=== PATIENT | male | born 1950 | race Hispanic/Latino ===

== ENCOUNTER 2017-02-27 15:33 | Inpatient (IN) | payer MEDICAID ==
[2017-02-27 15:52] VITALS: BMI 18.2
[2017-02-27] MEDS ORDERED: Sodium Chloride 0.9% 1,000 ML IV STA ×2 (16:28→18:19)
--- NOTE | 2017-02-27 16:30 | ED PDOC ---
Arrival/HPI - General Chief Complaint: Shortness Of Breath Time Seen by Provider: 02/27/17 16:09 Historian: Patient - History of Present Illness Narrative History of Present Illness (Text): 02/27/17 16:16 A 66 year old male, whose past medical history includes diabetes, is sent into the emergency department by PMD for positive cxray consistent with pneumonia. Patient reports for the past 3 days he has not been feel well. Patient symptoms includes a cough, runny nose, shortness of breath, decrease appetite and generalized weakness. Patient denies any chest pain, abdominal pain, or any other complaints. Patient mentions she was prescribed antibiotics by his PMD today. Patient did not get a flu shot this year. PMD: Dr. Carr Time/Duration: Other (3 days) Symptom Onset: Sudden Symptom Course: Unchanged Quality: Other Activities at Onset: Rest Context: Home Past Medical History - Provider Review Nursing Documentation Reviewed: Yes - Infectious Disease Hx of Infectious Diseases: None - Tetanus Immunization Tetanus Immunization: Unknown - Cardiac Hx Peripheral Edema: Yes - Pulmonary Hx Respiratory Disorders: No - Neurological Hx Neurological Disorder: No Other/Comment: Neuropathy,lumbar radiculopathy,pinched nerve lower back - HEENT Hx HEENT Disorder: No - Renal Hx Renal Disorder: No - Endocrine/Metabolic Hx Diabetes Mellitus Type 2: Yes - Hematological/Oncological Hx Blood Disorders: No - Integumentary Hx Dermatological Disorder: No - Musculoskeletal/Rheumatological Hx Falls: No - Gastrointestinal Hx Gastrointestinal Disorders: No - Genitourinary/Gynecological Hx Genitourinary Disorders: No - Psychiatric Hx Psychophysiologic Disorder: No Hx Anxiety: No Hx Bipolar Disorder: No Hx Depression: No Hx Emotional Abuse: No Hx Hallucinations: No Hx Panic Disorder: No Hx Post Traumatic Stress Disorder: No Hx Psychosis: No Hx Physical Abuse: No Hx Schizophrenia: No Hx Sexual Abuse: No Hx Substance Use: No - Surgical History Hx Amputation: Yes (partial Left great toe) Other/Comment: PICC line 03/15 - Anesthesia Hx Anesthesia: Yes Hx Anesthesia Reactions: No Hx Malignant Hyperthermia: No - Suicidal Assessment Feels Threatened In Home Enviroment: No Family/Social History - Physician Review Nursing Documentation Reviewed: Yes Family/Social History: No Known Family HX Smoking Status: Former Smoker Hx Alcohol Use: No Hx Substance Use: No Hx Substance Use Treatment: No Allergies/Home Meds Allergies/Adverse Reactions: Allergies No Known Allergies Allergy (Verified 01/04/15 15:13) Review of Systems - Physician Review All systems were reviewed & negative as marked: Yes - Review of Systems Constitutional: Fatigue Eyes: absent: Vision Changes ENT: Rhinorrhea Respiratory: SOB, Cough Cardiovascular: absent: Chest Pain Gastrointestinal: Appetite Changes. absent: Abdominal Pain, Constipation, Diarrhea, Nausea Genitourinary Male: absent: Dysuria Musculoskeletal: absent: Arthralgias Skin: absent: Rash Neurological: absent: Headache, Dizziness Endocrine: absent: Diaphoresis Hemo/Lymphatic: absent: Adenopathy Psychiatric: absent: Anxiety Physical Exam Vital Signs Reviewed: Yes Vital Signs Temp Pulse Resp BP Pulse Ox 02/27/17 18:00 102 H 17 149/77 98 02/27/17 16:30 22 93 L 02/27/17 16:13 103 H 16 97 02/27/17 15:49 97.5 F L 109 H 20 169/92 H 92 L Temperature: Afebrile Blood Pressure: Hypertensive Pulse: Tachycardic Respiratory Rate: Tachypneic Appearance: Positive for: Well-Appearing, Non-Toxic, Comfortable Pain Distress: None Mental Status: Positive for: Alert and Oriented X 3 - Systems Exam Head: Present: Atraumatic, Normocephalic Pupils: Present: PERRL Extroacular Muscles: Present: EOMI Conjunctiva: Present: Normal Mouth: Present: Moist Mucous Membranes Neck: Present: Normal Range of Motion Respiratory/Chest: Present: Clear to Auscultation, Good Air Exchange. No: Respiratory Distress, Accessory Muscle Use, Wheezes, Rales, Retracting, Rhonchi Cardiovascular: Present: Normal S1, S2, Tachycardic. No: Murmurs Abdomen: Present: Normal Bowel Sounds. No: Tenderness, Distention, Peritoneal Signs Back: Present: Normal Inspection Upper Extremity: Present: Normal Inspection. No: Cyanosis, Edema Lower Extremity: Present: Normal Inspection. No: Edema Neurological: Present: GCS=15, CN II-XII Intact, Speech Normal Skin: Present: Warm, Dry, Normal Color. No: Rashes Psychiatric: Present: Alert, Oriented x 3, Normal Insight, Normal Concentration Medical Decision Making ED Course and Treatment: 02/27/17 16:16 Impression: A 66 year old male with cough, runny nose, decrease appetite, shortness of breath and generalized weakness. Patient is tachycardic, hypoxic, and tachypneic (and meets SIRS criteria) Differential Diagnosis include but are not limited to: Pneumonia vs. bronchitis vs. Influenza Plan: -- EKG -- Chest X-ray -- Labs -- Influenza A/B -- Reassess and disposition Prior Visits: Notes and results from previous visits were reviewed. The patient was last brought into the emergency department on 01/24/17 unresponsive. Progress Notes: EKG: Ordered, reviewed, and independently interpreted the EKG. Rate : 102 BPM Rhythm : Sinus tachycardia Interpretation : Left axis deviation, No ST/T changes Comparison : Grossly unchanged from previous EKG on 01/24/17 for comparison. 02/27/17 17:25 Chest X-ray: Creator : CHANTELLE IGNACIO MD COMPARISON: 01/24/2017 FINDINGS: LUNGS: The lungs are hyperinflated and there is peribronchial thickening with chronic changes in both lungs. There is no focal consolidation PLEURA: No significant pleural effusion identified. No pneumothorax apparent. CARDIOVASCULAR: Normal. OSSEOUS STRUCTURES: No significant abnormalities. VISUALIZED UPPER ABDOMEN: Normal. OTHER FINDINGS: None. IMPRESSION: No active pulmonary disease. COPD. Patient had positive outpatient cxray and cxray in ED concerning for early pna. Patient given azithromycin and ceftriaxone. IVF infusing. He was given nebulizer treatments and continued to be short of breath and tachycardic, tachypneic and saturating 92% on RA. He meets sirs criteria. Will transfer to observation for copd/pna. Also hyperglycemic with gap but ph:7.33. IVF infusing. 02/27/17 19:[address] Caballero who is aware. - Lab Interpretations Lab Results: 02/27/17 16:50 02/27/17 16:50 Lab Results 02/27/17 17:15: Influenza Typ A,B (EIA) Negative for flu a/b 02/27/17 16:50: WBC 11.5 H D, RBC 4.37, Hgb 13.5 L, Hct 39.6 L, MCV 90.6, MCH 30.9, MCHC 34.1, RDW 12.0, Plt Count 193, MPV 11.8 H, Gran % 81.2 H, Lymph % ( Auto) 5.7 L, Stafford % (Auto) 13.0 H, Eos % (Auto) 0.0 L, Baso % (Auto) 0.1, Gran # 9.34 H, Lymph # 0.7 L, Stafford # 1.5 H, Eos # 0.0, Baso # 0.01, pO2 47, VBG pH 7.33, VBG pCO2 33.0 L, VBG HCO3 17.4 L, VBG Total CO2 18.4 L, VBG O2 Sat (Calc) 84.1 H, VBG Base Excess -7.5 L, VBG Potassium 4.8, Glucose 406 H*, Lactate 1.8, FiO2 21.0, Sodium 130.0 L, Potassium 4.7, Chloride 91.0 L, Carbon Dioxide 17 L, Anion Gap 28 H, BUN 24 H, Creatinine 0.8, Est GFR ( Amer) > 60, Est GFR ( Non-Af Amer) > 60, Random Glucose 395 H* D, Calcium 8.7, Total Bilirubin 1.2, AST 25, ALT 20, Alkaline Phosphatase 75, Total Protein 7.3, Albumin 3.8, Globulin 3.5, Albumin/Globulin Ratio 1.1, Venous Blood Potassium 4.8 I have reviewed the lab results: Yes - RAD Interpretation Radiology Orders: 02/27/17 16:24 CHEST TWO VIEWS (PA/LAT) [RAD] Stat - Medication Orders Current Medication Orders: Discontinued Medications Albuterol/Ipratropium (Duoneb 3 Mg/0.5 Mg (3 Ml) Ud) 3 ml IH STAT STA Stop: 02/27/17 18:26 Last Admin: 02/27/17 18:36 Dose: 3 ML Sodium Chloride (Sodium Chloride 0.9%) 1,000 mls @ 999 mls/hr IV .Q1H1M STA Stop: 02/27/17 17:28 Last Admin: 02/27/17 17:18 Dose: 999 MLS/HR eMAR Start Stop Document 02/27/17 17:18 ALA (Rec: 02/27/17 17:18 ALA [id number]) Intravenous Solution Start Date 02/27/17 Start Time 17:18 End Date 02/27/17 End time 18:18 Total Infusion Time 60 Azithromycin (Zithromax 500mg In Ns) 250 mls @ 167 mls/hr IVPB STAT STA PRN Reason: Protocol Stop: 02/27/17 18:06 Last Admin: 02/27/17 18:14 Dose: 167 MLS/HR eMAR Start Stop Document 02/27/17 18:14 ALA (Rec: 02/27/17 18:14 ALA [id number]) Intravenous Solution Start Date 02/27/17 Start Time 18:14 End Date 02/27/17 End time 19:44 Total Infusion Time 90 Ceftriaxone Sodium (Rocephin 1 Gram Ivpb) 100 mls @ 200 mls/hr IVPB STAT STA PRN Reason: Protocol Stop: 02/27/17 17:06 Last Admin: 02/27/17 17:20 Dose: 200 MLS/HR eMAR Start Stop Document 02/27/17 17:20 ALA (Rec: 02/27/17 17:20 ALA [id number]) Intravenous Solution Start Date 02/27/17 Start Time 17:20 End Date 02/27/17 End time 17:50 Total Infusion Time 30 Sodium Chloride (Sodium Chloride 0.9%) 1,000 mls @ 999 mls/hr IV .Q1H1M STA Stop: 02/27/17 19:19 Last Admin: 02/27/17 18:36 Dose: 999 MLS/HR eMAR Start Stop Document 02/27/17 18:36 ALA (Rec: 02/27/17 18:36 ALA [id number]) Intravenous Solution Start Date 02/27/17 Start Time 18:36 End Date 02/27/17 End time 19:36 Total Infusion Time 60 - Scribe Statement The provider has reviewed the documentation as recorded by the Dannibritchie Borden Provider Scribe Attestation: All medical record entries made by the Scribe were at my direction and personally dictated by me. I have reviewed the chart and agree that the record accurately reflects my personal performance of the history, physical exam, medical decision making, and the department course for this patient. I have also personally directed, reviewed, and agree with the discharge instructions and disposition. Disposition/Present on Arrival - Present on Arrival Any Indicators Present on Arrival: Yes History of DVT/PE: No History of Uncontrolled Diabetes: Yes Urinary Catheter: No History of Decub. Ulcer: No History Surgical Site Infection Following: None - Disposition Have Diagnosis and Disposition been Completed?: Yes Diagnosis: Pneumonia, Chronic obstructive pulmonary disease Disposition: HOSPITALIZED Disposition Time: 16:26 Patient Plan: Observation Condition: FAIR Referrals: Sweetie Carr MD [Primary Care Provider] - Follow up with primary
[2017-02-27] MEDS ORDERED: Azithromycin 500MG/NS 250ml 250 ML IVPB STA (16:37)
[2017-02-27] MEDS ORDERED: cefTRIAXone 1 gm 100 ML IVPB STA (16:37)
[2017-02-27 17:00] LABS: ADD MANUAL DIFF? NO
[2017-02-27 17:07] LABS: BASO # 0.01 K/mm3 (0.0-2.0); BASO % 0.1 % (0.0-3.0); GRAN # 9.34 (1.4-6.5); GRAN % 81.2 % (50.0-68.0); HEMATOCRIT 39.6 % (42.0-52.0); LYMPH # 0.7 (1.2-3.4); LYMPH % 5.7 % (22.0-35.0); MEAN CELL VOLUME 90.6 fL (80.0-105.0); MEAN CORPUSCULAR HEMOGLOBIN 30.9 pg (25.0-35.0); MEAN CORPUSCULAR HGB CONC 34.1 g/dl (31.0-37.0); MEAN PLATELET VOLUME 11.8 fl (7.0-11.0); MONO # 1.5 (0.1-0.6); PLATELET COUNT 193 10^3/uL (120.0-450.0); WHITE BLOOD COUNT 11.5 10^3/ul (4.5-11.0)
[2017-02-27 17:09] LABS: VENOUS BLOOD GAS BASE EXCESS -7.5 mmol/L (0.0-2.0); VENOUS BLOOD PH 7.33 (7.32-7.43)
[2017-02-27 17:19] LABS: ALB/GLOB RATIO 1.1 (1.1-1.8); ALKALINE PHOSPHATASE 75 U/L (38-133); ALT/SGPT 20 U/L (7-56); AST/SGOT 25 U/L (15-59); BILIRUBIN,TOTAL 1.2 mg/dL (0.2-1.3); BLOOD UREA NITROGEN 24 mg/dL (7-21); CALCIUM 8.7 mg/dL (8.4-10.5); CARBON DIOXIDE 17 mmol/L (21-33); CHLORIDE 91 mmol/L (98-107); GFR AFRICAN-AMERICAN > 60; POTASSIUM 4.7 mmol/L (3.6-5.0); SODIUM 131 mmol/L (132-148); TOTAL PROTEIN 7.3 g/dL (5.8-8.3)
--- NOTE | 2017-02-27 17:21 | RAD ---
HISTORY: cough, uri complaint COMPARISON: 01/24/2017 TECHNIQUE: Chest PA and lateral FINDINGS: LUNGS: The lungs are hyperinflated and there is peribronchial thickening with chronic changes in both lungs. There is no focal consolidation PLEURA: No significant pleural effusion identified. No pneumothorax apparent. CARDIOVASCULAR: Normal. OSSEOUS STRUCTURES: No significant abnormalities. VISUALIZED UPPER ABDOMEN: Normal. OTHER FINDINGS: None. IMPRESSION: No active pulmonary disease. COPD.
[2017-02-27 17:32] LABS: GLUCOSE,RANDOM 395 mg/dL (70-110)
[2017-02-27] MEDS ORDERED: Albuterol-Ipratrop 3 mg / 0.5 (3 ml) UD IH STA (18:25)
--- NOTE | 2017-02-27 20:05 | CP.PCM.HP ---
History of Present Illness - History of Present Illness History of Present Illness: cc: Shortness of breath HPI: Patient is a 66yo male with past medical history of diabetes mellitus type 2 that presented c/o generalized weakness and shortness of breath for the past 3 -4 days. Patient reported that 4 days prior he had began to feel weak and had chills. Today he reported going to his PMD, Dr. Sweetie Carr in the morning who had sent him for a chest xray. Later that day, patient stated he was contacted by his PMD who said his outpatient chest xray was consistent with a possible pneumonia and was prescribed augmentin, azithromycin, ventolin and atrovent. His PMD also recommended he come into the ED for further evaluation and treatment. On evaluation in the ED, patient complained of chills, weakness, shortness of breath, decreased appetite, nausea and nonbilious nonbloody vomiting. He reported that prior to this he was in a normal state of health and was active with his activities of daily living. Denies chest pain, palpitations , fever, sick contacts, abdominal pain, focal weakness, numbness, tingling. 12 point ROS completed and as stated above, otherwise negative PMHx: Diabetes mellitus type 2, PVD PSHx: 2 hernia repairs (10yrs prior), left toe amputation (8yrs prior) Family Hx: Mother: Liver Ca at 64yo, Father: at 85yo, no known health issues; brother/sister with no known health issues Allergies: NKDA Social Hx: Former smoker quit 4 yrs ago, 1ppd x 30yrs; Former alcohol abuse, quit over 10yrs ago; Denies illicit drug use Present on Admission - Present on Admission Any Indicators Present on Admission: No Past Patient History - Infectious Disease Hx of Infectious Diseases: None - Tetanus Immunizations Tetanus Immunization: Unknown - Past Medical History & Family History Past Medical History?: Yes - Past Social History Smoking Status: Former Smoker - CARDIAC Hx Peripheral Edema: Yes - PULMONARY Hx Respiratory Disorders: No - NEUROLOGICAL Hx Neurological Disorder: No Other/Comment: Neuropathy,lumbar radiculopathy,pinched nerve lower back - HEENT Hx HEENT Problems: No - RENAL Hx Chronic Kidney Disease: No - ENDOCRINE/METABOLIC Hx Diabetes Mellitus Type 2: Yes - HEMATOLOGICAL/ONCOLOGICAL Hx Blood Disorders: No - INTEGUMENTARY Hx Dermatological Problems: No - MUSCULOSKELETAL/RHEUMATOLOGICAL Hx Falls: No - GASTROINTESTINAL Hx Gastrointestinal Disorders: No - GENITOURINARY/GYNECOLOGICAL Hx Genitourinary Disorders: No - PSYCHIATRIC Hx Psychophysiologic Disorder: No Hx Anxiety: No Hx Bipolar Disorder: No Hx Depression: No Hx Emotional Abuse: No Hx Hallucinations: No Hx Panic Symptoms: No Hx Post Traumatic Stress Disorder: No Hx Psychosis: No Hx Physical Abuse: No Hx Schizophrenia: No Hx Sexual Abuse: No Hx Substance Use: No - SURGICAL HISTORY Hx Amputation: Yes (partial Left great toe) Other/Comment: PICC line 03/15 - ANESTHESIA Hx Anesthesia: Yes Hx Anesthesia Reactions: No Hx Malignant Hyperthermia: No Meds Allergies/Adverse Reactions: Allergies Allergy/AdvReac Type Severity Reaction Status Date / Time No Known Allergies Allergy Verified 01/04/15 15:13 Physical Exam - Constitutional Appears: Toxic, No Acute Distress - Head Exam Head Exam: ATRAUMATIC, NORMAL INSPECTION, NORMOCEPHALIC - Eye Exam Eye Exam: EOMI, PERRL - ENT Exam ENT Exam: Mucous Membranes Moist - Neck Exam Neck exam: Positive for: Normal Inspection. Negative for: Lymphadenopathy, Tenderness, Thyromegaly - Respiratory Exam Respiratory Exam: Clear to Auscultation Bilateral. absent: Rales, Rhonchi, Wheezes - Cardiovascular Exam Cardiovascular Exam: Tachycardia, +S1, +S2. absent: Diastolic murmur, Gallop, JVD, Rubs, Systolic Murmur - GI/Abdominal Exam GI & Abdominal Exam: Normal Bowel Sounds, Soft. absent: Distended, Firm, Guarding, Mass, Rebound, Tenderness - Back Exam Back exam: NORMAL INSPECTION - Neurological Exam Neurological exam: Alert, CN II-XII Intact, Oriented x3 - Psychiatric Exam Psychiatric exam: Normal Affect, Normal Mood - Skin Skin Exam: Dry, Intact, Normal Color, Warm Results - Vital Signs Recent Vital Signs: Last Vital Signs Temp 97.5 F L 02/27/17 15:49 Pulse 102 H 02/27/17 18:00 Resp 17 02/27/17 18:00 BP 149/77 02/27/17 18:00 Pulse Ox 98 02/27/17 18:00 - Labs Result Diagrams: 02/27/17 16:50 02/27/17 16:50 Assessment & Plan - Assessment and Plan (Free Text) Assessment: 66yo male with history of DMT2 presents c/o shortness of breath associated with generalized weakness, chills, nausea and vomiting x 3-4days Plan: 1. Shortness of breath likely 2/2 pneumonia -CTA pending to rule out PE -CXR reviewed -Procalcitonin pending; Blood/urine/sputum cultures pending -afebrile however leukocytosis with left shift -Continue with azithromycin/rocephin -Continue with duoneb CARIN and PRN -Continue with IVF hydration 2. DM type 2 -anion gap however no acidosis; continue to trend -Continue with ASA 81 -Continue with levemir 30u HS and humulin 6u AC TID -Humulin sliding scale -Consistent carb diet -Fingersticks ACHS Patient seen and case discussed with attending, Dr. Caballero - Date & Time Date: 02/27/17 Time: 20:07
[2017-02-27] MEDS ORDERED: Albuterol-Ipratrop 3 mg / 0.5 (3 ml) UD IH PRN (20:18)
[2017-02-27] MEDS ORDERED: Insulin Regular 1 UNITS/0.01 ML ML SC STA ×2 (20:23→21:16)
[2017-02-27] MEDS: Sodium Chloride 0.9% 1,000 ML IV SCH (21:19)
[2017-02-27] MEDS ORDERED: Iodixanol 320 MG/ML 100 ML BOTTLE IV ONE (21:39)
[2017-02-27] MEDS: Insulin Detemir 100 units/ml Vial (Levemir) SC SCH (22:35)
[2017-02-27] MEDS: Insulin Reg-MEDIUM-Coverage SC SCH (22:35)
[2017-02-27 23:50] LABS: URINE BILIRUBIN NEGATIVE (NEGATIVE); URINE BLOOD MODERATE (NEGATIVE); URINE GLUCOSE (UA) >=1000 mg/dL (NEGATIVE); URINE KETONE >=80 mg/dL (NEGATIVE); URINE LEUKOCYTE ESTERASE NEGATIVE Leu/uL (NEGATIVE); URINE PROTEIN 30 mg/dL (<30 mg/dL); URINE UROBILINOGEN 0.2 E.U./dL (<1 E.U./dL)
[2017-02-27 23:57] LABS: URINE APPEARANCE SLIGHT-CLOUDY (CLEAR); URINE COLOR YELLOW (YELLOW)
[2017-02-28 00:16] LABS: URINE BACTERIA RARE (NEG); URINE EPITHELIAL CELLS 0 - 2 /hpf (0-5); URINE WBC 0 - 2 /hpf (0-6)
[2017-02-28] MEDS ORDERED: Influenza Vaccine 45 MCG/0.5 ml IM ONE (01:48)
[2017-02-28] MEDS ORDERED: Pneumococcal 23-Valent Vaccine IM ONE (01:48)
[2017-02-28 07:08] LABS: ADD MANUAL DIFF? NO
[2017-02-28 07:17] LABS: BASO # 0.03 K/mm3 (0.0-2.0); BASO % 0.2 % (0.0-3.0); EOS % 0.2 % (1.5-5.0); GRAN # 11.15 (1.4-6.5); GRAN % 79.2 % (50.0-68.0); HEMATOCRIT 36.7 % (42.0-52.0); LYMPH # 0.8 (1.2-3.4); LYMPH % 5.7 % (22.0-35.0); MEAN CELL VOLUME 88.2 fL (80.0-105.0); MEAN CORPUSCULAR HGB CONC 35.1 g/dl (31.0-37.0); MONO # 2.1 (0.1-0.6); MONO % 14.7 % (1.0-6.0); PLATELET COUNT 235 10^3/uL (120.0-450.0); RED CELL DISTRIBUTION WIDTH 12.3 % (11.5-14.5); WHITE BLOOD COUNT 14.1 10^3/ul (4.5-11.0)
[2017-02-28 07:34] LABS: ALB/GLOB RATIO 0.9 (1.1-1.8); ALKALINE PHOSPHATASE 77 U/L (38-133); ALT/SGPT 19 U/L (7-56); AST/SGOT 20 U/L (15-59); BILIRUBIN,TOTAL 0.9 mg/dL (0.2-1.3); BLOOD UREA NITROGEN 22 mg/dL (7-21); CALCIUM 8.4 mg/dL (8.4-10.5); CARBON DIOXIDE 27 mmol/L (21-33); CHLORIDE 98 mmol/L (98-107); GFR AFRICAN-AMERICAN > 60; GLUCOSE,RANDOM 172 mg/dL (70-110); POTASSIUM 3.8 mmol/L (3.6-5.0); SODIUM 134 mmol/L (132-148); TOTAL PROTEIN 6.7 g/dL (5.8-8.3)
[2017-02-28] MEDS: Insulin Reg-MEDIUM-Coverage SC SCH ×4 (07:58→22:28)
[2017-02-28] MEDS: Insulin Regular 1 UNITS/0.01 ML ML SC SCH ×3 (10:25→18:29)
[2017-02-28] MEDS: Azithromycin 500MG/NS 250ml 250 ML IVPB SCH (10:29)
[2017-02-28] MEDS: cefTRIAXone 1 gm 100 ML IVPB SCH (10:30)
[2017-02-28] MEDS: Sodium Chloride 0.9% 1,000 ML IV SCH (10:30)
--- NOTE | 2017-02-28 11:19 | CT ---
PROCEDURE: CT Chest with contrast (Pulmonary Angiogram) HISTORY: r/o PE COMPARISON: None available. TECHNIQUE: Axial computed tomography images were obtained of the chest in the pulmonary arterial phase of enhancement. Coronal and sagittal reformatted images were created and reviewed. Intravenous contrast dose: 95 cc of Visipaque Radiation dose: Total exam DLP = 340 mGy-cm. FINDINGS: PULMONARY ARTERIES: There are no central emboli. There is some motion artifact which limits the visualization of the small distal arteries. AORTA: No acute findings. No thoracic aortic aneurysm. LUNGS: Bibasilar consolidation consistent with pneumonia left greater than right. PLEURAL SPACES: Unremarkable. No effusion or pneuomothorax. HEART: Unremarkable. No cardiomegaly. No significant pericardial effusion. LYMPH NODES: No lymphadenopathy. BONES, CHEST WALL: Unremarkable. No fracture or destructive lesion OTHER FINDINGS: The report concurs with the preliminary [facility] report IMPRESSION: Bibasilar consolidation consistent with pneumonia left greater than right. No evidence of central emboli
[2017-02-28] MEDS: Albuterol-Ipratrop 3 mg / 0.5 (3 ml) UD IH SCH ×3 (13:19→20:04)
--- NOTE | 2017-02-28 14:31 | CARD ---
APPROVED REPORT EKG Measurement Heart [id number] <Conclusion> Sinus tachycardia with premature atrial complexes with aberrant conduction Possible Left atrial enlargement Left axis deviation Abnormal ECG
--- NOTE | 2017-02-28 15:53 | CP.PCM.PN ---
Addendum entered and electronically signed by Rosaura Aranda DO 03/01/17 05:21: A/P Section under Pneumonia: CTA showed bibasilar consolidation consistent with PNA left > right. No evidence of central emboli. Original Note: <Rosaura Aranda - Last Filed: 03/01/17 04:29> Subjective - Date & Time of Evaluation Date of Evaluation: 02/28/17 Time of Evaluation: 07:05 - Subjective Subjective: Patient seen and examined at bedside. Patient still complains of having shortness of breath and coughs. Patient reports of coughing up clear color phlegm. Denies having headache, weakness, fever, chills, chest pain, abdominal pain, nausea or vomiting Objective - Vital Signs/Intake and Output Vital Signs (last 24 hours): Temp Pulse Resp BP Pulse Ox 98.4 F 95 H 20 134/77 93 L 02/28/17 08:00 02/28/17 08:00 02/28/17 08:00 02/28/17 08:00 02/28/17 08:00 - Medications Medications: Current Medications Albuterol/Ipratropium (Duoneb 3 Mg/0.5 Mg (3 Ml) Ud) 3 ml IH Q2H PRN PRN Reason: Shortness of Breath Last Admin: 02/28/17 05:53 Dose: 3 ml Albuterol/Ipratropium (Duoneb 3 Mg/0.5 Mg (3 Ml) Ud) 3 ml IH [id number] [facility] Last Admin: 02/28/17 13:22 Dose: Not Given Aspirin (Ecotrin) 81 mg PO DAILY [facility] Last Admin: 02/28/17 10:30 Dose: 81 mg Azithromycin (Zithromax 500mg In Ns) 250 mls @ 167 mls/hr IVPB DAILY [facility] PRN Reason: Protocol Last Admin: 02/28/17 10:29 Dose: 167 mls/hr Ceftriaxone Sodium (Rocephin 1 Gram Ivpb) 100 mls @ 100 mls/hr IVPB DAILY [facility] PRN Reason: Protocol Last Admin: 02/28/17 10:30 Dose: 100 mls/hr Sodium Chloride (Sodium Chloride 0.9%) 1,000 mls @ 100 mls/hr IV .Q10H [facility] Last Admin: 02/28/17 10:30 Dose: 100 mls/hr Insulin Detemir (Levemir) 30 unit SC HS [facility] Last Admin: 02/27/17 22:35 Dose: 30 unit Insulin Human Regular (Humulin R Med) 0 units SC ACHS [facility] PRN Reason: Protocol Last Admin: 02/28/17 11:42 Dose: 1 units Insulin Human Regular (Humulin R) 6 units SC ACTID [facility] Last Admin: 02/28/17 11:38 Dose: Not Given - Labs Labs: 02/28/17 06:50 02/28/17 06:50 - Constitutional Appears: Non-toxic, No Acute Distress - Head Exam Head Exam: ATRAUMATIC, NORMOCEPHALIC - Eye Exam Eye Exam: EOMI, PERRL - ENT Exam ENT Exam: Mucous Membranes Moist - Neck Exam Neck Exam: Normal Inspection. absent: Tenderness - Respiratory Exam Respiratory Exam: NORMAL BREATHING PATTERN. absent: Clear to Ausculation Bilateral (bibasilar crackles appreciated), Respiratory Distress - Cardiovascular Exam Cardiovascular Exam: REGULAR RHYTHM, RRR, +S1, +S2. absent: Murmur - GI/Abdominal Exam GI & Abdominal Exam: Soft, Normal Bowel Sounds. absent: Bruit, Tenderness - Back Exam Back Exam: NORMAL INSPECTION. absent: CVA tenderness (L), CVA tenderness (R) - Neurological Exam Neurological Exam: Alert, Awake, Oriented x3 - Psychiatric Exam Psychiatric exam: Normal Affect, Normal Mood - Skin Skin Exam: Dry, Intact, Normal Color, Warm Assessment and Plan - Assessment and Plan (Free Text) Assessment: 66yo male with history of type 2 DM was admitted for pneumonia Pneumonia -HCAP vs CAP -Recent hospital admission 5 weeks ago -CTA pending to rule out PE -CXR reviewed -Procalcitonin elevated at 0.64 -Blood culture negative after 24 hours -sputum culture pending -Urine L. Pneumonphila Ag negative -Influenza Type A, B negative -afebrile, leukocytosis improving at 14 -Continue with azithromycin/rocephin -Continue with duoneb CARIN and PRN -Continue with IVF hydration DM type 2 -Continue with ASA 81 -Continue with levemir 30u HS and humulin 6u AC TID -Humulin sliding scale -Consistent carb diet -Fingersticks ACHS -hematology nurse educator referral <Jeremias Szymanski - Last Filed: 03/01/17 07:55> Objective - Vital Signs/Intake and Output Vital Signs (last 24 hours): Temp Pulse Resp BP Pulse Ox 98.4 F 88 20 126/64 96 02/28/17 16:00 02/28/17 16:00 02/28/17 16:00 02/28/17 16:00 02/28/17 16:00 Intake and Output: 03/01/17 03/01/17 06:59 18:59 Intake Total 600 Output Total 300 Balance 300 - Medications Medications: Current Medications Albuterol/Ipratropium (Duoneb 3 Mg/0.5 Mg (3 Ml) Ud) 3 ml IH Q2H PRN PRN Reason: Shortness of Breath Last Admin: 02/28/17 05:53 Dose: 3 ml Albuterol/Ipratropium (Duoneb 3 Mg/0.5 Mg (3 Ml) Ud) 3 ml IH [id number] [facility] Last Admin: 03/01/17 01:26 Dose: 3 ml Aspirin (Ecotrin) 81 mg PO DAILY [facility] Last Admin: 02/28/17 10:30 Dose: 81 mg Azithromycin (Zithromax 500mg In Ns) 250 mls @ 167 mls/hr IVPB DAILY [facility] PRN Reason: Protocol Last Admin: 02/28/17 10:29 Dose: 167 mls/hr Ceftriaxone Sodium (Rocephin 1 Gram Ivpb) 100 mls @ 100 mls/hr IVPB DAILY [facility] PRN Reason: Protocol Last Admin: 02/28/17 10:30 Dose: 100 mls/hr Sodium Chloride (Sodium Chloride 0.9%) 1,000 mls @ 100 mls/hr IV .Q10H [facility] Last Admin: 03/01/17 02:57 Dose: 100 mls/hr Insulin Detemir (Levemir) 30 unit SC HS [facility] Last Admin: 02/28/17 22:21 Dose: 30 unit Insulin Human Regular (Humulin R Med) 0 units SC ACHS [facility] PRN Reason: Protocol Last Admin: 03/01/17 07:49 Dose: Not Given Insulin Human Regular (Humulin R) 6 units SC ACTID [facility] Last Admin: 03/01/17 07:50 Dose: Not Given Attending/Attestation - Attestation I have personally seen and examined this patient.: Yes I have fully participated in the care of the patient.: Yes I have reviewed all pertinent clinical information, including history, physical exam and plan: Yes Notes (Text): 02/28/17 66 year old male with past medical history of diabetes who presented with complaint of shortness of breath and cough. He was found to have bibasilar pneumonia on CT scan. Influenza screen was negative. He is on iv antibiotics. Procalcitonin and WBC is mildly elevated. Will follow up on cultures. Continue with insulin ss and levemir for diabetes. Jeremias Szymanski MD Hospitalist.
[2017-02-28] MEDS: Insulin Detemir 100 units/ml Vial (Levemir) SC SCH (22:21)
[2017-03-01] MEDS: Albuterol-Ipratrop 3 mg / 0.5 (3 ml) UD IH SCH ×4 (01:26→21:15)
[2017-03-01] MEDS: Sodium Chloride 0.9% 1,000 ML IV SCH ×2 (02:57→15:16)
[2017-03-01] MEDS: Insulin Reg-MEDIUM-Coverage SC SCH ×3 (07:49→16:30)
[2017-03-01 07:50] LABS: ADD MANUAL DIFF? NO
[2017-03-01] MEDS: Insulin Regular 1 UNITS/0.01 ML ML SC SCH ×3 (07:50→16:30)
[2017-03-01 08:05] LABS: BASO # 0.02 K/mm3 (0.0-2.0); BASO % 0.2 % (0.0-3.0); EOS % 0.4 % (1.5-5.0); GRAN # 7.69 (1.4-6.5); GRAN % 74.4 % (50.0-68.0); HEMATOCRIT 33.7 % (42.0-52.0); LYMPH # 0.8 (1.2-3.4); LYMPH % 7.9 % (22.0-35.0); MEAN CELL VOLUME 89.2 fL (80.0-105.0); MEAN CORPUSCULAR HEMOGLOBIN 31.5 pg (25.0-35.0); MEAN CORPUSCULAR HGB CONC 35.3 g/dl (31.0-37.0); MEAN PLATELET VOLUME 11.2 fl (7.0-11.0); MONO # 1.8 (0.1-0.6); MONO % 17.1 % (1.0-6.0); PLATELET COUNT 270 10^3/uL (120.0-450.0); RED CELL DISTRIBUTION WIDTH 12.4 % (11.5-14.5); WHITE BLOOD COUNT 10.3 10^3/ul (4.5-11.0)
[2017-03-01 08:13] LABS: ALB/GLOB RATIO 0.8 (1.1-1.8); ALKALINE PHOSPHATASE 77 U/L (38-133); ALT/SGPT 20 U/L (7-56); AST/SGOT 29 U/L (15-59); BILIRUBIN,TOTAL 0.7 mg/dL (0.2-1.3); BLOOD UREA NITROGEN 16 mg/dL (7-21); CALCIUM 8.2 mg/dL (8.4-10.5); CARBON DIOXIDE 27 mmol/L (21-33); CHLORIDE 100 mmol/L (98-107); GFR AFRICAN-AMERICAN > 60; GLUCOSE,RANDOM 130 mg/dL (70-110); POTASSIUM 3.7 mmol/L (3.6-5.0); SODIUM 135 mmol/L (132-148); TOTAL PROTEIN 6.4 g/dL (5.8-8.3)
[2017-03-01] MEDS: cefTRIAXone 1 gm 100 ML IVPB SCH (09:19)
[2017-03-01] MEDS: Azithromycin 500MG/NS 250ml 250 ML IVPB SCH (09:19)
[2017-03-01 17:04] VITALS: O2SAT 97
--- NOTE | 2017-03-01 17:10 | CP.PCM.PN ---
<Rosaura Aranda - Last Filed: 03/02/17 00:16> Subjective - Date & Time of Evaluation Date of Evaluation: 03/02/17 Time of Evaluation: 08:30 - Subjective Subjective: Patient seen and examined at bedside. No acute events overnight. Patient still complains of shortness of breath especially when he is eating and walking. Patient was instructed to use oxygen via nasal cannula only if he needs to. Denies headache, fever, chillsl, chest pain, abdominal pain, nausea, vomiting, diarrhea or urinary symptoms. Objective - Vital Signs/Intake and Output Vital Signs (last 24 hours): Temp Pulse Resp BP Pulse Ox 98.4 F 103 H 22 124/77 97 03/01/17 16:00 03/01/17 16:00 03/01/17 16:00 03/01/17 16:00 03/01/17 16:00 Intake and Output: 03/01/17 03/01/17 06:59 18:59 Intake Total 600 360 Output Total 300 400 Balance 300 -40 - Medications Medications: Current Medications Albuterol/Ipratropium (Duoneb 3 Mg/0.5 Mg (3 Ml) Ud) 3 ml IH Q2H PRN PRN Reason: Shortness of Breath Last Admin: 02/28/17 05:53 Dose: 3 ml Albuterol/Ipratropium (Duoneb 3 Mg/0.5 Mg (3 Ml) Ud) 3 ml IH [id number] [facility] Last Admin: 03/01/17 13:41 Dose: 3 ml Aspirin (Ecotrin) 81 mg PO DAILY [facility] Last Admin: 03/01/17 09:19 Dose: 81 mg Azithromycin (Zithromax 500mg In Ns) 250 mls @ 167 mls/hr IVPB DAILY [facility] PRN Reason: Protocol Last Admin: 03/01/17 09:19 Dose: 167 mls/hr Ceftriaxone Sodium (Rocephin 1 Gram Ivpb) 100 mls @ 100 mls/hr IVPB DAILY [facility] PRN Reason: Protocol Last Admin: 03/01/17 09:19 Dose: 100 mls/hr Sodium Chloride (Sodium Chloride 0.9%) 1,000 mls @ 100 mls/hr IV .Q10H [facility] Last Admin: 03/01/17 15:16 Dose: 100 mls/hr Insulin Detemir (Levemir) 30 unit SC HS [facility] Last Admin: 02/28/17 22:21 Dose: 30 unit Insulin Human Regular (Humulin R Med) 0 units SC ACHS [facility] PRN Reason: Protocol Last Admin: 03/01/17 16:30 Dose: Not Given Insulin Human Regular (Humulin R) 6 units SC ACTID [facility] Last Admin: 03/01/17 16:30 Dose: Not Given - Labs Labs: 03/01/17 07:35 03/01/17 07:35 - Constitutional Appears: Non-toxic, No Acute Distress - Head Exam Head Exam: ATRAUMATIC, NORMOCEPHALIC - Eye Exam Eye Exam: Normal appearance - ENT Exam ENT Exam: Mucous Membranes Moist - Neck Exam Neck Exam: Normal Inspection - Respiratory Exam Respiratory Exam: NORMAL BREATHING PATTERN. absent: Clear to Ausculation Bilateral (Bibasilar crackers Left > right), Respiratory Distress - Cardiovascular Exam Cardiovascular Exam: REGULAR RHYTHM, RRR, +S1, +S2. absent: Murmur - GI/Abdominal Exam GI & Abdominal Exam: Soft, Normal Bowel Sounds. absent: Tenderness - Back Exam Back Exam: NORMAL INSPECTION. absent: CVA tenderness (L), CVA tenderness (R) - Neurological Exam Neurological Exam: Alert, Awake, Oriented x3 - Psychiatric Exam Psychiatric exam: Normal Affect, Normal Mood - Skin Skin Exam: Dry, Intact, Normal Color, Warm Assessment and Plan - Assessment and Plan (Free Text) Assessment: 66yo male with history of type 2 DM was admitted for pneumonia Pneumonia -HCAP vs CAP -Recent hospital admission 5 weeks ago -CTA pending to rule out PE -CXR reviewed -Procalcitonin elevated at 0.64 -Blood culture negative after 24 hours -sputum culture grew normal oral dale -Urine L. Pneumonphila Ag negative -Influenza Type A, B negative -afebrile, leukocytosis improving at 10.3 today -Continue with azithromycin/rocephin -Continue with duoneb PRN, will assess how often patient requests it -Continue with IVF hydration -Encourage pt to ambulate and bed to chair DM type 2 -Continue with ASA 81 -Continue with levemir 30u HS and humulin 6u AC TID -Humulin sliding scale -Consistent carb diet -Fingersticks ACHS -ict educator referral <Jeremias Szymanski - Last Filed: 03/02/17 06:44> Objective - Vital Signs/Intake and Output Vital Signs (last 24 hours): Temp Pulse Resp BP Pulse Ox 98.4 F 103 H 22 124/77 97 03/01/17 16:00 03/01/17 16:00 03/01/17 16:00 03/01/17 16:00 03/01/17 16:00 Intake and Output: 03/01/17 03/02/17 18:59 06:59 Intake Total 640 Output Total 400 200 Balance 240 -200 - Medications Medications: Current Medications Albuterol/Ipratropium (Duoneb 3 Mg/0.5 Mg (3 Ml) Ud) 3 ml IH Q2H PRN PRN Reason: Shortness of Breath Last Admin: 02/28/17 05:53 Dose: 3 ml Albuterol/Ipratropium (Duoneb 3 Mg/0.5 Mg (3 Ml) Ud) 3 ml IH [id number] [facility] Last Admin: 03/01/17 21:15 Dose: 3 ml Aspirin (Ecotrin) 81 mg PO DAILY [facility] Last Admin: 03/01/17 09:19 Dose: 81 mg Azithromycin (Zithromax 500mg In Ns) 250 mls @ 167 mls/hr IVPB DAILY [facility] PRN Reason: Protocol Last Admin: 03/01/17 09:19 Dose: 167 mls/hr Ceftriaxone Sodium (Rocephin 1 Gram Ivpb) 100 mls @ 100 mls/hr IVPB DAILY [facility] PRN Reason: Protocol Last Admin: 03/01/17 09:19 Dose: 100 mls/hr Sodium Chloride (Sodium Chloride 0.9%) 1,000 mls @ 100 mls/hr IV .Q10H [facility] Last Admin: 03/02/17 01:54 Dose: 100 mls/hr Insulin Detemir (Levemir) 30 unit SC HS [facility] Last Admin: 03/01/17 22:08 Dose: 30 unit Insulin Human Regular (Humulin R Med) 0 units SC ACHS [facility] PRN Reason: Protocol Last Admin: 03/01/17 16:30 Dose: Not Given Insulin Human Regular (Humulin R) 6 units SC ACTID [facility] Last Admin: 03/01/17 16:30 Dose: Not Given - Labs Labs: 03/01/17 07:35 03/01/17 07:35 Attending/Attestation - Attestation I have personally seen and examined this patient.: Yes I have fully participated in the care of the patient.: Yes I have reviewed all pertinent clinical information, including history, physical exam and plan: Yes Notes (Text): 03/01/17 66 year old male with past medical history of diabetes who presented with complaint of shortness of breath and cough. He was found to have bibasilar pneumonia on CT scan for which he is on iv antibiotics. Influenza screen was negative. Procalcitonin was elevated and leukocytosis has im proved. Will follow up on cultures. Today he still reports dyspnea on exertion and cough. Will continue with current management. Out of bed to chair is ordered. Continue with insulin ss and levemir for diabetes. Jeremias Szymanski MD Hospitalist.
[2017-03-01] MEDS: Insulin Detemir 100 units/ml Vial (Levemir) SC SCH (22:08)
[2017-03-02] MEDS: Sodium Chloride 0.9% 1,000 ML IV SCH (01:54)
[2017-03-02 07:00] LABS: ADD MANUAL DIFF? NO
[2017-03-02 07:06] LABS: BASO # 0.02 K/mm3 (0.0-2.0); BASO % 0.2 % (0.0-3.0); EOS # 0.1 (0.0-0.7); EOS % 1.4 % (1.5-5.0); GRAN % 65.9 % (50.0-68.0); LYMPH # 1.2 (1.2-3.4); LYMPH % 13.2 % (22.0-35.0); MEAN CELL VOLUME 89.2 fL (80.0-105.0); MEAN CORPUSCULAR HEMOGLOBIN 31.5 pg (25.0-35.0); MEAN CORPUSCULAR HGB CONC 35.3 g/dl (31.0-37.0); MEAN PLATELET VOLUME 10.6 fl (7.0-11.0); MONO # 1.7 (0.1-0.6); MONO % 19.3 % (1.0-6.0); PLATELET COUNT 310 10^3/uL (120.0-450.0); RED CELL DISTRIBUTION WIDTH 12.5 % (11.5-14.5); WHITE BLOOD COUNT 8.8 10^3/ul (4.5-11.0)
[2017-03-02 07:16] LABS: ALB/GLOB RATIO 0.8 (1.1-1.8); ALKALINE PHOSPHATASE 75 U/L (38-133); ALT/SGPT 31 U/L (7-56); AST/SGOT 43 U/L (15-59); BILIRUBIN,TOTAL 0.6 mg/dL (0.2-1.3); BLOOD UREA NITROGEN 13 mg/dL (7-21); CALCIUM 8.2 mg/dL (8.4-10.5); CARBON DIOXIDE 28 mmol/L (21-33); CHLORIDE 103 mmol/L (98-107); GFR AFRICAN-AMERICAN > 60; POTASSIUM 3.8 mmol/L (3.6-5.0); SODIUM 137 mmol/L (132-148); TOTAL PROTEIN 6.5 g/dL (5.8-8.3)
[2017-03-02 07:33] LABS: GLUCOSE,RANDOM 38 mg/dL (70-110)
[2017-03-02 07:35] VITALS: BP 137/85; PULSE 87; RESP 18; TEMP 97.9
[2017-03-02] MEDS: Insulin Regular 1 UNITS/0.01 ML ML SC SCH ×2 (07:46→11:49)
[2017-03-02] MEDS: Insulin Reg-MEDIUM-Coverage SC SCH ×2 (07:47→11:49)
[2017-03-02] MEDS: cefTRIAXone 1 gm 100 ML IVPB SCH (09:46)
[2017-03-02] MEDS: Azithromycin 500MG/NS 250ml 250 ML IVPB SCH (09:47)
--- NOTE | 2017-03-02 11:47 | CP.PCM.DIS ---
<Lam Boykin - Last Filed: 03/02/17 12:58> Provider - Provider Date of Admission: 02/28/17 16:08 Attending physician: Jeremias Szymanski MD Primary care physician: Sweetie Carr MD Time Spent in preparation of Discharge (in minutes): 45 Diagnosis - Discharge Diagnosis (1) COPD (chronic obstructive pulmonary disease) Status: Chronic Priority: Medium (2) PNA (pneumonia) Status: Acute Priority: Low (3) Hypoglycemia Status: Acute Priority: Low (4) Diabetes mellitus Status: Chronic Priority: Medium Hospital Course - Lab Results Lab Results: Most Recent Lab Values WBC 8.8 10^3/ul (4.5-11.0) 03/02/17 06:58 RBC 3.81 10^6/uL (3.5-6.1) 03/02/17 06:58 Hgb 12.0 gm/dL (14.0-18.0) L 03/02/17 06:58 Hct 34.0 % (42.0-52.0) L 03/02/17 06:58 MCV 89.2 fL (80.0-105.0) 03/02/17 06:58 MCH 31.5 pg (25.0-35.0) 03/02/17 06:58 MCHC 35.3 g/dl (31.0-37.0) 03/02/17 06:58 RDW 12.5 % (11.5-14.5) 03/02/17 06:58 Plt Count 310 10^3/uL (120.0-450.0) 03/02/17 06:58 MPV 10.6 fl (7.0-11.0) 03/02/17 06:58 Gran % 65.9 % (50.0-68.0) 03/02/17 06:58 Lymph % (Auto) 13.2 % (22.0-35.0) L 03/02/17 06:58 [place] % (Auto) 19.3 % (1.0-6.0) H 03/02/17 06:58 Eos % (Auto) 1.4 % (1.5-5.0) L 03/02/17 06:58 Baso % (Auto) 0.2 % (0.0-3.0) 03/02/17 06:58 Gran # 5.80 (1.4-6.5) 03/02/17 06:58 Lymph # 1.2 (1.2-3.4) 03/02/17 06:58 [place] # 1.7 (0.1-0.6) H 03/02/17 06:58 Eos # 0.1 (0.0-0.7) 03/02/17 06:58 Baso # 0.02 K/mm3 (0.0-2.0) 03/02/17 06:58 pO2 47 mm/Hg (30-55) 02/27/17 16:50 VBG pH 7.33 (7.32-7.43) 02/27/17 16:50 VBG pCO2 33.0 (40-60) L 02/27/17 16:50 VBG HCO3 17.4 mmol/l (21-28) L 02/27/17 16:50 VBG Total CO2 18.4 mmol.L (22-28) L 02/27/17 16:50 VBG O2 Sat (Calc) 84.1 % (40-65) H 02/27/17 16:50 VBG Base Excess -7.5 mmol/L (0.0-2.0) L 02/27/17 16:50 VBG Potassium 4.8 mmol/L (3.6-5.2) 02/27/17 16:50 Sodium 130.0 mmol/L (132-148) L 02/27/17 16:50 Chloride 91.0 mmol/L (98-107) L 02/27/17 16:50 Glucose 406 mg/dl (75-110) H* 02/27/17 16:50 Lactate 1.8 mmol/L (0.7-2.1) 02/27/17 16:50 FiO2 21.0 % 02/27/17 16:50 Sodium 137 mmol/L (132-148) 03/02/17 06:58 Potassium 3.8 mmol/L (3.6-5.0) 03/02/17 06:58 Chloride 103 mmol/L (98-107) 03/02/17 06:58 Carbon Dioxide 28 mmol/L (21-33) 03/02/17 06:58 Anion Gap 10 (10-20) 03/02/17 06:58 BUN 13 mg/dL (7-21) 03/02/17 06:58 Creatinine 0.6 mg/dL (0.5-1.4) 03/02/17 06:58 Est GFR ( Amer) > 60 03/02/17 06:58 Est GFR (Non-Af Amer) > 60 03/02/17 06:58 POC Glucose (mg/dL) 273 mg/dL (65-110) H 02/28/17 02:00 Random Glucose 38 mg/dL (70-110) L* D 03/02/17 06:58 Calcium 8.2 mg/dL (8.4-10.5) L 03/02/17 06:58 Total Bilirubin 0.6 mg/dL (0.2-1.3) 03/02/17 06:58 AST 43 U/L (15-59) 03/02/17 06:58 ALT 31 U/L (7-56) 03/02/17 06:58 Alkaline Phosphatase 75 U/L (38-133) 03/02/17 06:58 Total Protein 6.5 g/dL (5.8-8.3) 03/02/17 06:58 Albumin 2.8 g/dL (3.0-4.8) L 03/02/17 06:58 Globulin 3.7 gm/dL 03/02/17 06:58 Albumin/Globulin Ratio 0.8 (1.1-1.8) L 03/02/17 06:58 Procalcitonin 0.64 NG/ML (0.19-0.49) H 02/27/17 17:11 Venous Blood Potassium 4.8 mmol/L (3.6-5.2) 02/27/17 16:50 Urine Color Yellow (YELLOW) 02/27/17 23:25 Urine Appearance Slight-cloudy (CLEAR) 02/27/17 23:25 Urine pH 6.0 (4.7-8.0) 02/27/17 23:25 Ur Specific [place] 1.020 (1.005-1.035) 02/27/17 23:25 Urine Protein 30 mg/dL (<30 mg/dL) H 02/27/17 23:25 Urine Glucose (UA) >=1000 mg/dL (NEGATIVE) 02/27/17 23:25 Urine Ketones >=80 mg/dL (NEGATIVE) 02/27/17 23:25 Urine Blood Moderate (NEGATIVE) H 02/27/17 23:25 Urine Nitrate Negative (NEGATIVE) 02/27/17 23:25 Urine Bilirubin Negative (NEGATIVE) 02/27/17 23:25 Urine Urobilinogen 0.2 E.U./dL (<1 E.U./dL) 02/27/17 23:25 Ur Leukocyte Esterase Negative Wojciech/uL (NEGATIVE) 02/27/17 23:25 Urine RBC 2 - 5 /hpf (0-2) 02/27/17 23:25 Urine WBC 0 - 2 /hpf (0-6) 02/27/17 23:25 Ur Epithelial Cells 0 - 2 /hpf (0-5) 02/27/17 23:25 Urine Bacteria Rare (NEG) 02/27/17 23:25 Influenza Typ A,B (EIA) Negative for flu a/b (NEGATIVE) 02/27/17 17:15 Ur L.pneumophila Ag Negative (NEGATIVE) 02/27/17 23:25 - Hospital Course Hospital Course: 66 y/o male with PMH of diabetes mellitus type 2 that presented with generalized weakness and shortness of breath for the past 3-[address] of chest which showed bibasilar pneumonia. Pt was placed on Azithromycin and Rocephin. Pt had negative cultures and negative flu. Pt improved over the next 4 days and was discharged on 03/02/17. Pt did have low glucose level on morning of discharge, but was corrected with some juice and food. Pt was told to monitor sugar closely over the next few days. Pt will adjust home insulin as needed based upon glucose levels, which he has done previously in the past. Pt sent home on Azithromycin and Augmentin for 6 days. Pt will also continue other home medications. Discharge Exam - Head Exam Head Exam: ATRAUMATIC, NORMOCEPHALIC - ENT Exam ENT Exam: Mucous Membranes Moist, Normal Exam - Respiratory Exam Respiratory Exam: NORMAL BREATHING PATTERN, UNREMARKABLE. absent: Rales, Rhonchi, Wheezes - Cardiovascular Exam Cardiovascular Exam: RRR, +S1, +S2 - GI/Abdominal Exam GI & Abdominal Exam: Normal Bowel Sounds, Soft. absent: Tenderness - Extremities Exam Extremities exam: normal inspection - Neurological Exam Neurological exam: Alert, CN II-XII Intact, Oriented x3 - Psychiatric Exam Psychiatric exam: Normal Affect, Normal Mood - Skin Skin Exam: Intact, Normal Color, Warm Discharge Plan - Discharge Medications Prescriptions: Amoxicillin/Clavulanate [Augmentin 500 MG-125 MG Tab] 1 tab PO Q12 #12 tab Aspirin [Ecotrin] 81 mg PO DAILY #7 tabec Insulin Human Regular [HumuLIN R] 5 units SC BID #5 ml Insulin Human NPH [Humulin N] 15 units SC DAILY #5 vial Azithromycin [Z-Ricky] 250 mg PO DAILY #6 tab Lisinopril [Zestril] 5 mg PO DAILY #30 tab - Follow Up Plan Condition: FAIR Disposition: HOME/ ROUTINE Patient education suggested?: Yes Instructions: Viral Pneumonia (GEN), Pneumococcal Vaccine for Adults (DC), COPD (Chronic Obstructive Pulmonary Disease) (DC) Additional Instructions: Take antibiotics as instructed. Follow up with PMD in 1 week. Continue all home medications. If symptoms worsen, please return to hospital for further care. Referrals: Sweetie Carr MD [Primary Care Provider] - <Jeremias Szymanski - Last Filed: 03/02/17 13:07> Provider - Provider Date of Admission: 02/28/17 16:08 Attending physician: Jeremias Szymanski MD Primary care physician: Sweetie Carr MD Hospital Course - Lab Results Lab Results: Most Recent Lab Values WBC 8.8 10^3/ul (4.5-11.0) 03/02/17 06:58 RBC 3.81 10^6/uL (3.5-6.1) 03/02/17 06:58 Hgb 12.0 gm/dL (14.0-18.0) L 03/02/17 06:58 Hct 34.0 % (42.0-52.0) L 03/02/17 06:58 MCV 89.2 fL (80.0-105.0) 03/02/17 06:58 MCH 31.5 pg (25.0-35.0) 03/02/17 06:58 MCHC 35.3 g/dl (31.0-37.0) 03/02/17 06:58 RDW 12.5 % (11.5-14.5) 03/02/17 06:58 Plt Count 310 10^3/uL (120.0-450.0) 03/02/17 06:58 MPV 10.6 fl (7.0-11.0) 03/02/17 06:58 Gran % 65.9 % (50.0-68.0) 03/02/17 06:58 Lymph % (Auto) 13.2 % (22.0-35.0) L 03/02/17 06:58 [place] % (Auto) 19.3 % (1.0-6.0) H 03/02/17 06:58 Eos % (Auto) 1.4 % (1.5-5.0) L 03/02/17 06:58 Baso % (Auto) 0.2 % (0.0-3.0) 03/02/17 06:58 Gran # 5.80 (1.4-6.5) 03/02/17 06:58 Lymph # 1.2 (1.2-3.4) 03/02/17 06:58 [place] # 1.7 (0.1-0.6) H 03/02/17 06:58 Eos # 0.1 (0.0-0.7) 03/02/17 06:58 Baso # 0.02 K/mm3 (0.0-2.0) 03/02/17 06:58 pO2 47 mm/Hg (30-55) 02/27/17 16:50 VBG pH 7.33 (7.32-7.43) 02/27/17 16:50 VBG pCO2 33.0 (40-60) L 02/27/17 16:50 VBG HCO3 17.4 mmol/l (21-28) L 02/27/17 16:50 VBG Total CO2 18.4 mmol.L (22-28) L 02/27/17 16:50 VBG O2 Sat (Calc) 84.1 % (40-65) H 02/27/17 16:50 VBG Base Excess -7.5 mmol/L (0.0-2.0) L 02/27/17 16:50 VBG Potassium 4.8 mmol/L (3.6-5.2) 02/27/17 16:50 Sodium 130.0 mmol/L (132-148) L 02/27/17 16:50 Chloride 91.0 mmol/L (98-107) L 02/27/17 16:50 Glucose 406 mg/dl (75-110) H* 02/27/17 16:50 Lactate 1.8 mmol/L (0.7-2.1) 02/27/17 16:50 FiO2 21.0 % 02/27/17 16:50 Sodium 137 mmol/L (132-148) 03/02/17 06:58 Potassium 3.8 mmol/L (3.6-5.0) 03/02/17 06:58 Chloride 103 mmol/L (98-107) 03/02/17 06:58 Carbon Dioxide 28 mmol/L (21-33) 03/02/17 06:58 Anion Gap 10 (10-20) 03/02/17 06:58 BUN 13 mg/dL (7-21) 03/02/17 06:58 Creatinine 0.6 mg/dL (0.5-1.4) 03/02/17 06:58 Est GFR ( Amer) > 60 03/02/17 06:58 Est GFR (Non-Af Amer) > 60 03/02/17 06:58 POC Glucose (mg/dL) 273 mg/dL (65-110) H 02/28/17 02:00 Random Glucose 38 mg/dL (70-110) L* D 03/02/17 06:58 Calcium 8.2 mg/dL (8.4-10.5) L 03/02/17 06:58 Total Bilirubin 0.6 mg/dL (0.2-1.3) 03/02/17 06:58 AST 43 U/L (15-59) 03/02/17 06:58 ALT 31 U/L (7-56) 03/02/17 06:58 Alkaline Phosphatase 75 U/L (38-133) 03/02/17 06:58 Total Protein 6.5 g/dL (5.8-8.3) 03/02/17 06:58 Albumin 2.8 g/dL (3.0-4.8) L 03/02/17 06:58 Globulin 3.7 gm/dL 03/02/17 06:58 Albumin/Globulin Ratio 0.8 (1.1-1.8) L 03/02/17 06:58 Procalcitonin 0.64 NG/ML (0.19-0.49) H 02/27/17 17:11 Venous Blood Potassium 4.8 mmol/L (3.6-5.2) 02/27/17 16:50 Urine Color Yellow (YELLOW) 02/27/17 23:25 Urine Appearance Slight-cloudy (CLEAR) 02/27/17 23:25 Urine pH 6.0 (4.7-8.0) 02/27/17 23:25 Ur Specific [place] 1.020 (1.005-1.035) 02/27/17 23:25 Urine Protein 30 mg/dL (<30 mg/dL) H 02/27/17 23:25 Urine Glucose (UA) >=1000 mg/dL (NEGATIVE) 02/27/17 23:25 Urine Ketones >=80 mg/dL (NEGATIVE) 02/27/17 23:25 Urine Blood Moderate (NEGATIVE) H 02/27/17 23:25 Urine Nitrate Negative (NEGATIVE) 02/27/17 23:25 Urine Bilirubin Negative (NEGATIVE) 02/27/17 23:25 Urine Urobilinogen 0.2 E.U./dL (<1 E.U./dL) 02/27/17 23:25 Ur Leukocyte Esterase Negative Wojciech/uL (NEGATIVE) 02/27/17 23:25 Urine RBC 2 - 5 /hpf (0-2) 02/27/17 23:25 Urine WBC 0 - 2 /hpf (0-6) 02/27/17 23:25 Ur Epithelial Cells 0 - 2 /hpf (0-5) 02/27/17 23:25 Urine Bacteria Rare (NEG) 02/27/17 23:25 Influenza Typ A,B (EIA) Negative for flu a/b (NEGATIVE) 02/27/17 17:15 Ur L.pneumophila Ag Negative (NEGATIVE) 02/27/17 23:25 Attending/Attestation - Attestation I have personally seen and examined this patient.: Yes I have fully participated in the care of the patient.: Yes I have reviewed all pertinent clinical information, including history, physical exam and plan: Yes Notes (Text): 03/02/17 13:04 66 year old male with past medical history of diabetes who presented with complaint of shortness of breath and cough. He was found to have bibasilar pneumonia on CT scan and started on iv antibiotics. His leukocytosis has improved. Symptoms today also have improved. He was hypoglycemic earlier this morning, although asymptomatic. This improved with juice and breakfast. He is instructed to monitor his fingersticks closely at home and adjust his insulin accordingly which he states he feels comfortable with. Instructed on signs of hypoglycemia which he states he is well aware of. Patient is discharged home today to follow up his pmd. Monitor FS closely at home as above. Continue with antitbiotics as prescribed. Jeremias Szymanski MD Hospitalist.
== END 2017-03-02 13:51 | disposition home or self-care (01) | DRG 541 ==
LOC: ED 15:33 → ERH 18:32 → 5RNO 21:40 → OBSVTOIN 02-28 16:08
PROVIDERS: ADMIT Internal Medicine; ATTEND Internal Medicine
DX: J44.0 Chronic obstructive pulmonary disease with (acute) lower respiratory infection (principal); J18.9 Pneumonia, unspecified organism; E11.649 Type 2 diabetes mellitus with hypoglycemia without coma; Z87.891 Personal history of nicotine dependence; Z79.4 Long term (current) use of insulin

== ENCOUNTER 2017-04-14 10:50 | Inpatient (IN) | payer MEDICAID ==
--- NOTE | 2017-04-14 11:32 | ED PDOC ---
Arrival/HPI - General Chief Complaint: Lower Extremity Problem/Injury Time Seen by Provider: 04/14/17 11:16 Historian: Patient - History of Present Illness Narrative History of Present Illness (Text): 04/14/17 11:33 A 66 year old male, whose past medical history includes diabetes (on Insulin), presents to the emergency department complaining of worsening smell of infected right foot. Patient reports taking antibiotics, unsure of name, given by Dr. Braun about 2 weeks ago. Patient denies smoking. Patient denies any other complaints at this time. Z[employer]zag Elastic Attacher: Dr. Braun Symptom Onset: Sudden Symptom Course: Unchanged Activities at Onset: Rest Context: Home Associated Symptoms (Text): none 04/14/17 12:31 Transferred to the emergency department from [facility] by for admission for diabetic foot ulcer which failed to weeks of outpatient by mouth antibiotics Past Medical History - Provider Review Nursing Documentation Reviewed: Yes - Infectious Disease Hx of Infectious Diseases: None - Tetanus Immunization Tetanus Immunization: Unknown - Cardiac Hx Cardiac Disorders: Yes Hx Peripheral Edema: Yes - Pulmonary Hx Respiratory Disorders: Yes Hx Pneumonia: Yes - Neurological Hx Neurological Disorder: No Other/Comment: Neuropathy,lumbar radiculopathy,pinched nerve lower back - HEENT Hx HEENT Disorder: No - Renal Hx Renal Disorder: No - Endocrine/Metabolic Hx Diabetes Mellitus Type 2: Yes - Hematological/Oncological Hx Blood Disorders: No - Integumentary Hx Dermatological Disorder: No - Musculoskeletal/Rheumatological Hx Falls: No - Gastrointestinal Hx Gastrointestinal Disorders: No - Genitourinary/Gynecological Hx Genitourinary Disorders: No - Psychiatric Hx Psychophysiologic Disorder: No Hx Anxiety: No Hx Bipolar Disorder: No Hx Depression: No Hx Emotional Abuse: No Hx Hallucinations: No Hx Panic Disorder: No Hx Post Traumatic Stress Disorder: No Hx Psychosis: No Hx Physical Abuse: No Hx Schizophrenia: No Hx Sexual Abuse: No Hx Substance Use: No - Surgical History Hx Amputation: Yes (partial Left great toe) Other/Comment: from previous triage: PICC line 03/15 - Anesthesia Hx Anesthesia: Yes Hx Anesthesia Reactions: No Hx Malignant Hyperthermia: No - Suicidal Assessment Feels Threatened In Home Enviroment: No Family/Social History - Physician Review Nursing Documentation Reviewed: Yes Family/Social History: No Known Family HX Smoking Status: Former Smoker Hx Alcohol Use: No Hx Substance Use: No Hx Substance Use Treatment: No Allergies/Home Meds Allergies/Adverse Reactions: Allergies No Known Allergies Allergy (Verified 04/14/17 11:13) Home Medications: Home Meds Medication Instructions Recorded Confirmed Ventolin HFA 90 mcg/actuation (8 g) 108 mcg Q4H 02/27/17 04/14/17 Review of Systems - Physician Review All systems were reviewed & negative as marked: Yes - Review of Systems Constitutional: absent: Fevers Respiratory: Normal Cardiovascular: Normal Gastrointestinal: Normal Skin: Ulcer (L foot big toe), Other (R foot pruritic discharge lateral 5th MTP joint) Physical Exam Vital Signs Reviewed: Yes Vital Signs Temp Pulse Resp BP Pulse Ox 04/14/17 10:50 98.3 F 98 H 18 153/85 H 98 Temperature: Afebrile Blood Pressure: Hypertensive Pulse: Regular Respiratory Rate: Normal Appearance: Positive for: Well-Appearing, Non-Toxic, Comfortable Pain Distress: None Mental Status: Positive for: Alert and Oriented X 3 - Systems Exam Head: Present: Atraumatic, Normocephalic Pupils: Present: PERRL Extroacular Muscles: Present: EOMI Conjunctiva: Present: Normal Mouth: Present: Moist Mucous Membranes Pharnyx: No: ERYTHEMA, EXUDATE, TONSILS ENLARGED Neck: Present: Normal Range of Motion Respiratory/Chest: Present: Clear to Auscultation, Good Air Exchange. No: Respiratory Distress, Accessory Muscle Use Cardiovascular: Present: Regular Rate and Rhythm, Normal S1, S2. No: Murmurs Abdomen: Present: Normal Bowel Sounds. No: Tenderness, Distention, Peritoneal Signs Back: Present: Normal Inspection Upper Extremity: Present: Normal Inspection. No: Cyanosis, Edema Lower Extremity: Present: Other (R foot foul smelling pruritic discharge on lateral 5th MTP joint; L foot big toe amputation and non infection ulcer on plantar surface under 2nd MTP joint). No: Edema Neurological: Present: GCS=15, CN II-XII Intact, Speech Normal Skin: Present: Warm, Dry, Normal Color. No: Rashes Psychiatric: Present: Alert, Oriented x 3, Normal Insight, Normal Concentration Medical Decision Making ED Course and Treatment: 04/14/17 11:27 Impression: A 66 year old male with right foot foul smell pruritic discharge on lateral 5th MTP joint and left foot big toe amputation and non infection ulcer on plantar surface under 2nd MTP joint. Differential Diagnosis included but are not limited to: Plan: -- EKG -- chest xray -- labs -- Urinalysis -- Radiology right foot -- Vancomycin -- Reassess and disposition Prior Visits: Notes and results from previous visits were reviewed. Patient last reported to the emergency department on 02/28/17 for evaluation of cough, runny nose, decrease appetite, shortness of breath and generalized weakness. Patient was transferred to observation for COPD/PNA. Patient was discharged on 03/02/17. Progress Notes: 04/14/17 12:[address] Vivas 04/14/17 12:34 EKG shows normal sinus rhythm rate approximately [address] or T-wave changes Chest xray: Creator : Kris Deras MD 04/14/2017 12:54 IMPRESSION: No active disease. Foot xray: Creator : Kris Deras MD 04/14/2017 12:45 IMPRESSION: No acute findings. No evidence of osteomyelitis. - Lab Interpretations Lab Results: 04/14/17 11:45 04/14/17 11:45 Lab Results 04/14/17 11:45: Sodium 136, Potassium 4.3, Chloride 99, Carbon Dioxide 29, Anion Gap 12, BUN 16, Creatinine 0.6, Est GFR ( Amer) > 60, Est GFR (Non- Af Amer) > 60, Random Glucose 199 H, Calcium 9.1, Total Bilirubin 0.9, AST 23, ALT 27, Alkaline Phosphatase 70, Lactate Dehydrogenase 425, Total Creatine Kinase 109, Troponin I < 0.01, Total Protein 7.4, Albumin 3.7, Globulin 3.7, Albumin/Globulin Ratio 1.0 L 04/14/17 11:45: WBC 5.2 D, RBC 3.50, Hgb 10.6 L, Hct 31.6 L, MCV 90.3, MCH 30.3 , MCHC 33.5, RDW 14.0, Plt Count 301, MPV 9.6, Gran % 51.5, Lymph % (Auto) 32.2 , [place] % (Auto) 10.7 H, Eos % (Auto) 4.6, Baso % (Auto) 1.0, Gran # 2.68, Lymph # 1.7, [place] # 0.6, Eos # 0.2, Baso # 0.05 I have reviewed the lab results: Yes - RAD Interpretation Radiology Orders: 04/14/17 11:33 CHEST TWO VIEWS (PA/LAT) [RAD] Stat FOOT RIGHT 3 VIEWS ROUTINE [RAD] Stat - EKG Interpretation Interpreted by ED Physician: Yes Type: 12 lead EKG - Medication Orders Current Medication Orders: Acetaminophen (Tylenol 325mg Tab) 650 mg PO Q6 PRN PRN Reason: Fever >100.4 F Aspirin (Ecotrin) 81 mg PO DAILY CARIN Insulin Human NPH (Humulin N) 10 units SC DAILY CARIN Insulin Human Regular (Humulin R Med) 0 units SC ACHS CARIN PRN Reason: Protocol Lisinopril (Zestril) 5 mg PO DAILY CARIN Pantoprazole Sodium (Protonix Ec Tab) 40 mg PO DAILY CARIN Discontinued Medications Enoxaparin Sodium (Lovenox) 30 mg SC DAILY CARIN PRN Reason: Protocol Enoxaparin Sodium (Lovenox) 40 mg SC STAT STA PRN Reason: Protocol Stop: 04/14/17 13:32 Vancomycin HCl (Vancomycin 1gm) 1 gm in 250 mls @ 167 mls/hr IVPB STAT STA PRN Reason: Protocol Stop: 04/14/17 13:03 - Scribe Statement The provider has reviewed the documentation as recorded by the Kylee Resendez Provider Scribe Attestation: All medical record entries made by the Scribe were at my direction and personally dictated by me. I have reviewed the chart and agree that the record accurately reflects my personal performance of the history, physical exam, medical decision making, and the department course for this patient. I have also personally directed, reviewed, and agree with the discharge instructions and disposition. Disposition/Present on Arrival - Present on Arrival Any Indicators Present on Arrival: No History of DVT/PE: No History of Uncontrolled Diabetes: Yes Urinary Catheter: No History of Decub. Ulcer: No History Surgical Site Infection Following: None - Disposition Have Diagnosis and Disposition been Completed?: Yes Diagnosis: Diabetic foot infection Disposition: HOSPITALIZED Disposition Time: 12:31 Patient Plan: Admission Patient Problems: Current Active Problems Problem Status Onset Diabetic foot infection Acute Condition: GOOD
[2017-04-14 11:33] VITALS: BMI 24.3
[2017-04-14] MEDS ORDERED: Vancomycin 1gm in NS 250ml 1 GM/250 ML BAG IVPB STA (11:34)
[2017-04-14 12:00] LABS: ADD MANUAL DIFF? NO
[2017-04-14 12:06] LABS: BASO # 0.05 K/mm3 (0.0-2.0); EOS # 0.2 (0.0-0.7); EOS % 4.6 % (1.5-5.0); GRAN # 2.68 (1.4-6.5); GRAN % 51.5 % (50.0-68.0); HEMATOCRIT 31.6 % (42.0-52.0); LYMPH # 1.7 (1.2-3.4); LYMPH % 32.2 % (22.0-35.0); MEAN CELL VOLUME 90.3 fL (80.0-105.0); MEAN CORPUSCULAR HEMOGLOBIN 30.3 pg (25.0-35.0); MEAN CORPUSCULAR HGB CONC 33.5 g/dl (31.0-37.0); MEAN PLATELET VOLUME 9.6 fl (7.0-11.0); MONO # 0.6 (0.1-0.6); MONO % 10.7 % (1.0-6.0); PLATELET COUNT 301 10^3/uL (120.0-450.0); WHITE BLOOD COUNT 5.2 10^3/ul (4.5-11.0)
[2017-04-14 12:13] LABS: ALKALINE PHOSPHATASE 70 U/L (38-133); ALT/SGPT 27 U/L (7-56); AST/SGOT 23 U/L (15-59); BILIRUBIN,TOTAL 0.9 mg/dL (0.2-1.3); BLOOD UREA NITROGEN 16 mg/dL (7-21); CALCIUM 9.1 mg/dL (8.4-10.5); CARBON DIOXIDE 29 mmol/L (21-33); CHLORIDE 99 mmol/L (98-107); GFR AFRICAN-AMERICAN > 60; GLUCOSE,RANDOM 199 mg/dL (70-110); POTASSIUM 4.3 mmol/L (3.6-5.0); SODIUM 136 mmol/L (132-148); TOTAL PROTEIN 7.4 g/dL (5.8-8.3)
[2017-04-14 12:31] LABS: TROPONIN I < 0.01 ng/mL
--- NOTE | 2017-04-14 12:50 | RAD ---
PROCEDURE: Right Foot Radiographs. HISTORY: r/o osteo COMPARISON: None. FINDINGS: BONES: Normal. No fracture. JOINTS: Normal. SOFT TISSUES: Normal. OTHER FINDINGS: None. IMPRESSION: No acute findings. No evidence of osteomyelitis
--- NOTE | 2017-04-14 12:53 | RAD ---
HISTORY: admit COMPARISON: 02/27/2017 TECHNIQUE: Chest PA and lateral FINDINGS: LUNGS: No active pulmonary disease. PLEURA: No significant pleural effusion identified. No pneumothorax apparent. CARDIOVASCULAR: Normal. OSSEOUS STRUCTURES: No significant abnormalities. VISUALIZED UPPER ABDOMEN: Normal. OTHER FINDINGS: None. IMPRESSION: No active disease.
--- NOTE | 2017-04-14 13:14 | CP.PCM.HP ---
<Robyn López - Last Filed: 04/14/17 13:31> History of Present Illness - History of Present Illness History of Present Illness: CC: diabetic foot ulcer 66 year old male with past medical history of IDDM, diabetic neuropathy, and PVD presents for right foot ulcer. Ulcer is locate on lateral aspect of right foot. Pt states that the ulcer has been ongoing for about 1 month but recently the ulcer started draining and had a foul odor. Patient saw his fine grader, Dr. Colon today and was then sent to ED. Patient denies having any CP, SOB, abd pain, N/V/D/C, F/C. Patient states that he has been ambulating without difficulty and did not have any LE pain. Patient does note B/L LE swelling fore which he wears pressure stockings. PMHx: stated above PSHx: 2 hernia repairs (10yrs prior), left toe amputation (8yrs prior) Family Hx: Mother: Liver Ca at 64yo, Father: at 85yo, no known health issues; brother/sister with no known health issues Allergies: NKDA Social Hx: Former smoker quit 4 yrs ago, 1ppd x 30yrs; Former alcohol abuse, quit over 10yrs ago; Denies illicit drug use Meds: see JAN PMD: Dr. Sweetie Carr Present on Admission - Present on Admission Any Indicators Present on Admission: No History of Uncontrolled Diabetes: Yes Review of Systems - Review of Systems All systems: reviewed and no additional remarkable complaints except Past Patient History - Infectious Disease Hx of Infectious Diseases: None - Tetanus Immunizations Tetanus Immunization: Unknown - Past Medical History & Family History Past Medical History?: Yes - Past Social History Smoking Status: Former Smoker Alcohol: None Drugs: Denies Home Situation {Lives}: With Family - CARDIAC Hx Cardiac Disorders: Yes Hx Peripheral Edema: Yes - PULMONARY Hx Respiratory Disorders: Yes Hx Pneumonia: Yes - NEUROLOGICAL Hx Neurological Disorder: No Other/Comment: Neuropathy,lumbar radiculopathy,pinched nerve lower back - HEENT Hx HEENT Problems: No - RENAL Hx Chronic Kidney Disease: No - ENDOCRINE/METABOLIC Hx Diabetes Mellitus Type 2: Yes - HEMATOLOGICAL/ONCOLOGICAL Hx Blood Disorders: No - INTEGUMENTARY Hx Dermatological Problems: No - MUSCULOSKELETAL/RHEUMATOLOGICAL Hx Falls: No - GASTROINTESTINAL Hx Gastrointestinal Disorders: No - GENITOURINARY/GYNECOLOGICAL Hx Genitourinary Disorders: No - PSYCHIATRIC Hx Psychophysiologic Disorder: No Hx Anxiety: No Hx Bipolar Disorder: No Hx Depression: No Hx Emotional Abuse: No Hx Hallucinations: No Hx Panic Symptoms: No Hx Post Traumatic Stress Disorder: No Hx Psychosis: No Hx Physical Abuse: No Hx Schizophrenia: No Hx Sexual Abuse: No Hx Substance Use: No - SURGICAL HISTORY Hx Amputation: Yes (partial Left great toe) Other/Comment: from previous triage: PICC line 03/15 - ANESTHESIA Hx Anesthesia: Yes Hx Anesthesia Reactions: No Hx Malignant Hyperthermia: No Meds Allergies/Adverse Reactions: Allergies Allergy/AdvReac Type Severity Reaction Status Date / Time No Known Allergies Allergy Verified 04/14/17 15:26 Physical Exam - Constitutional Appears: Non-toxic, No Acute Distress - Head Exam Head Exam: ATRAUMATIC - ENT Exam ENT Exam: Mucous Membranes Moist - Respiratory Exam Respiratory Exam: Clear to Auscultation Bilateral, NORMAL BREATHING PATTERN. absent: Accessory Muscle Use, Rales, Rhonchi, Wheezes - Cardiovascular Exam Cardiovascular Exam: REGULAR RHYTHM, +S1, +S2. absent: Diastolic murmur, Gallop , Rubs, Systolic Murmur - GI/Abdominal Exam GI & Abdominal Exam: Normal Bowel Sounds, Soft. absent: Distended, Firm, Guarding, Rigid, Tenderness - Extremities Exam Extremities exam: Negative for: pedal edema, tenderness Additional comments: right lateral foot ulcer with drainage - Neurological Exam Neurological exam: Alert, Oriented x3 - Psychiatric Exam Psychiatric exam: Normal Affect, Normal Mood - Skin Skin Exam: Dry, Intact, Normal Color, Warm Results - Vital Signs Recent Vital Signs: Last Vital Signs Temp 98.3 F 04/14/17 10:50 Pulse 98 H 04/14/17 10:50 Resp 18 04/14/17 10:50 BP 153/85 H 04/14/17 10:50 Pulse Ox 98 04/14/17 10:50 - Labs Result Diagrams: 04/14/17 11:45 04/14/17 11:45 Assessment & Plan - Assessment and Plan (Free Text) Assessment: 66 year old male with past medical history of IDDM, diabetic neuropathy, PVD is admitted for lateral foot ulcer. Xray of foot shows no evidence of psteomyelitis. Patient has normal WBC count and vitals are within normal limits. Diabetic foot ulcer Consult ID, Dr. Boland Consult fine grader, Dr. Colon. Per podiatry, tentative plan is to take patient to OR tomorrow or Friday for debridement. NPO after midnight Abx: vancomyocin IDDM Accucheck ACHS ISS medium dose Home NPH 10 units QD Will check HgbA1c and lipid panel Will continue home medication: lisinopril and aspirin Prophylaxis - protonix - SCDs. Will give one dose of lovenox today and hold is for possible procedure tomorrow. Case discussed with attending, Dr. Vivas - Date & Time Date: 04/14/17 Time: 13:24 <Fantasma Vivas - Last Filed: 04/15/17 17:17> Results - Vital Signs Recent Vital Signs: Last Vital Signs Temp 98 F 04/15/17 08:17 Pulse 65 04/15/17 08:17 Resp 20 04/15/17 08:17 BP 135/89 04/15/17 11:03 Pulse Ox 95 04/15/17 08:17 - Labs Result Diagrams: 04/15/17 06:30 04/15/17 06:30 Labs: Laboratory Results - last 24 hr 04/15/17 04/15/17 04/15/17 06:30 06:30 06:30 WBC 4.9 RBC 3.53 Hgb 10.6 L Hct 31.9 L MCV 90.4 MCH 30.0 MCHC 33.2 RDW 13.9 Plt Count 302 MPV 9.7 Gran % 68.1 H Lymph % (Auto) 17.5 L [place] % (Auto) 7.4 H Eos % (Auto) 5.6 H Baso % (Auto) 1.4 Gran # 3.31 Lymph # 0.9 L [place] # 0.4 Eos # 0.3 Baso # 0.07 ESR 40 H PT 11.2 INR 1.04 APTT 28.8 Sodium Potassium Chloride Carbon Dioxide Anion Gap BUN Creatinine Est GFR ( Amer) Est GFR (Non-Af Amer) POC Glucose (mg/dL) Random Glucose Hemoglobin A1c Calcium Total Bilirubin AST ALT Alkaline Phosphatase C-React Prot High Sens 4.72 H Total Protein Albumin Globulin Albumin/Globulin Ratio Triglycerides Cholesterol LDL Cholesterol Direct HDL Cholesterol 04/15/17 04/15/17 04/15/17 06:30 06:30 09:01 WBC RBC Hgb Hct MCV MCH MCHC RDW Plt Count MPV Gran % Lymph % (Auto) [place] % (Auto) Eos % (Auto) Baso % (Auto) Gran # Lymph # [place] # Eos # Baso # ESR PT INR APTT Sodium 135 Potassium 5.3 H Chloride 99 Carbon Dioxide 27 Anion Gap 14 BUN 18 Creatinine 0.7 Est GFR ( Amer) > 60 Est GFR (Non-Af Amer) > 60 POC Glucose (mg/dL) 349 H Random Glucose 381 H* D Hemoglobin A1c 8.1 H D Calcium 8.9 Total Bilirubin 1.4 H AST 21 ALT 32 Alkaline Phosphatase 82 C-React Prot High Sens Total Protein 6.9 Albumin 3.5 Globulin 3.4 Albumin/Globulin Ratio 1.0 L Triglycerides 72 Cholesterol 147 LDL Cholesterol Direct 79 HDL Cholesterol 51 Attending/Attestation - Attestation I have personally seen and examined this patient.: Yes I have fully participated in the care of the patient.: Yes I have reviewed all pertinent clinical information: Yes Notes (Text): 04/15/17 17:13 Attending note; Patient seen and examined with resident in ER. Patient is a 66 year old male with past medical history of IDDM, diabetic neuropathy, toe amputation and PVD is sent from fine grader's office for nonhealing ulcer in the right foot. Patient failed outpatient oral antibiotics therapy. Wound culture sent. Started on IV vancomycin and Zosyn. Diabetes; continue NPH and insulin sliding scale. Podiatry evaluation with Dr. Braun ordered. Foot x-rays negative for osteomyelitis. ID evaluation requested. Possible plan for debridement by podiatry. Upon discharge the patient will follow-up with PMD DR. Carr.
[2017-04-14] MEDS ORDERED: Sodium Chloride 0.9% 1,000 ML IV SCH (13:15)
[2017-04-14] MEDS ORDERED: Enoxaparin 40 mg Syringe SC STA (13:31)
[2017-04-14] MEDS ORDERED: Pneumococcal 23-Valent Vaccine IM ONE (17:05)
[2017-04-14] MEDS: Insulin Reg-MEDIUM-Coverage SC SCH ×2 (17:21→22:24)
[2017-04-14] MEDS: Piperacillin/Tazobact 3.375 gm 100 ML IVPB SCH (18:00)
--- NOTE | 2017-04-15 02:09 | CARD ---
APPROVED REPORT EKG Measurement Heart [id number] <Conclusion> Normal sinus rhythm Left axis deviation Abnormal ECG
[2017-04-15] MEDS: Piperacillin/Tazobact 3.375 gm 100 ML IVPB SCH ×4 (03:19→18:34)
[2017-04-15 06:54] LABS: ADD MANUAL DIFF? NO
[2017-04-15 07:10] LABS: INR 1.04 (0.93-1.08); PARTIAL THROMBOPLASTIN TIME 28.8 Seconds (23.7-30.8)
[2017-04-15 07:11] LABS: BASO # 0.07 K/mm3 (0.0-2.0); BASO % 1.4 % (0.0-3.0); EOS # 0.3 (0.0-0.7); EOS % 5.6 % (1.5-5.0); GRAN # 3.31 (1.4-6.5); GRAN % 68.1 % (50.0-68.0); HEMATOCRIT 31.9 % (42.0-52.0); LYMPH # 0.9 (1.2-3.4); LYMPH % 17.5 % (22.0-35.0); MEAN CELL VOLUME 90.4 fL (80.0-105.0); MEAN CORPUSCULAR HGB CONC 33.2 g/dl (31.0-37.0); MEAN PLATELET VOLUME 9.7 fl (7.0-11.0); MONO # 0.4 (0.1-0.6); MONO % 7.4 % (1.0-6.0); PLATELET COUNT 302 10^3/uL (120.0-450.0); RED CELL DISTRIBUTION WIDTH 13.9 % (11.5-14.5); WHITE BLOOD COUNT 4.9 10^3/ul (4.5-11.0)
[2017-04-15 07:24] LABS: ALKALINE PHOSPHATASE 82 U/L (38-133); ALT/SGPT 32 U/L (7-56); AST/SGOT 21 U/L (15-59); BILIRUBIN,TOTAL 1.4 mg/dL (0.2-1.3); BLOOD UREA NITROGEN 18 mg/dL (7-21); CALCIUM 8.9 mg/dL (8.4-10.5); CARBON DIOXIDE 27 mmol/L (21-33); CHLORIDE 99 mmol/L (98-107); CHOLESTEROL 147 mg/dL (130-200); GFR AFRICAN-AMERICAN > 60; POTASSIUM 5.3 mmol/L (3.6-5.0); SODIUM 135 mmol/L (132-148); TOTAL PROTEIN 6.9 g/dL (5.8-8.3)
[2017-04-15] MEDS: Insulin Reg-MEDIUM-Coverage SC SCH ×4 (08:09→22:15)
[2017-04-15 08:13] LABS: GLUCOSE,RANDOM 381 mg/dL (70-110)
[2017-04-15 08:37] LABS: ERYTHROCYTE SEDIMENTATION RATE 40 mm/hr (0.00-15.0)
--- NOTE | 2017-04-15 09:29 | CP.PCM.PN ---
<Robyn López - Last Filed: 04/15/17 13:04> Subjective - Date & Time of Evaluation Date of Evaluation: 04/15/17 Time of Evaluation: 09:26 - Subjective Subjective: HOSPITALISTS PROGRESS NOTE Pt is seen and examined at bedside. No acute events overnight. Patient c/o diaphoresis and "feeling hot" overnight. He states that he feels this way when his blood sugar is elevated. However, once the AC was turned on in the room, patient felt better. Patient denies having any CP, SOB, abd pain, N/V/D/C, LE pain. Objective - Vital Signs/Intake and Output Vital Signs (last 24 hours): Temp Pulse Resp BP Pulse Ox 98 F 65 20 135/89 95 04/15/17 08:17 04/15/17 08:17 04/15/17 08:17 04/15/17 08:17 04/15/17 08:17 Intake and Output: 04/15/17 04/15/17 06:59 18:59 Intake Total 640 Output Total 200 Balance 440 - Medications Medications: Current Medications Acetaminophen (Tylenol 325mg Tab) 650 mg PO Q6 PRN PRN Reason: Fever >100.4 F Last Admin: 04/14/17 14:11 Dose: 650 mg Aspirin (Ecotrin) 81 mg PO DAILY [facility] Piperacillin Sod/Tazobactam Sod (Zosyn 3.375 In Ns 100ml) 100 mls @ 200 mls/hr IVPB Q6 CARIN PRN Reason: Protocol Stop: 04/21/17 18:01 Last Admin: 04/15/17 06:35 Dose: 200 mls/hr Vancomycin HCl 1.25 gm/ Sodium (Chloride) 250 mls @ 167 mls/hr IVPB Q12 CARIN PRN Reason: Protocol Insulin Human NPH (Humulin N) 10 units SC DAILY [facility] [place] Insulin Human Regular (Humulin R Med) 0 units SC ACHS CARIN PRN Reason: Protocol Last Admin: 04/15/17 08:09 Dose: 8 units Lisinopril (Zestril) 5 mg PO DAILY [facility] [place] Last Admin: 04/14/17 14:44 Dose: 5 mg Pantoprazole Sodium (Protonix Ec Tab) 40 mg PO DAILY [facility] [place] - Labs Labs: 04/15/17 06:30 04/15/17 06:30 PT 11.2 Seconds (9.9-11.8) 04/15/17 06:30 INR 1.04 (0.93-1.08) 04/15/17 06:30 APTT 28.8 Seconds (23.7-30.8) 04/15/17 06:30 - Constitutional Appears: Non-toxic, No Acute Distress - Head Exam Head Exam: ATRAUMATIC - ENT Exam ENT Exam: Mucous Membranes Moist - Respiratory Exam Respiratory Exam: Clear to Ausculation Bilateral, NORMAL BREATHING PATTERN. absent: Rales, Rhonchi, Wheezes - Cardiovascular Exam Cardiovascular Exam: REGULAR RHYTHM, +S1, +S2. absent: Gallop, Rubs, Murmur - GI/Abdominal Exam GI & Abdominal Exam: Soft, Normal Bowel Sounds. absent: Distended, Firm, Guarding, Rigid, Tenderness - Extremities Exam Extremities Exam: absent: Pedal Edema, Tenderness Additional comments: stockings in place. right foot wrapped - Neurological Exam Neurological Exam: Alert, Awake, Oriented x3 - Psychiatric Exam Psychiatric exam: Normal Affect, Normal Mood - Skin Skin Exam: Dry, Intact, Normal Color, Warm Assessment and Plan - Assessment and Plan (Free Text) Assessment: 66 year old male with past medical history of IDDM, diabetic neuropathy, PVD is admitted for lateral foot ulcer. Xray of foot shows no evidence of psteomyelitis. Patient has normal WBC count and vitals are within normal limits. Diabetic foot ulcer Consult ID, Dr. Boland Consult shipping agent, Dr. Colon. Tentative OR tomorrow. NPO past midnight Abx: vancomyocin and zosyn. Will adjust abx based upon previous cultures IDDM Accucheck ACHS ISS medium dose Will switch NPH to 10 units BID Lipid panel WNL Hgb A1c 8.1 Will continue home medication: lisinopril and aspirin Prophylaxis - protonix - SCDs. Will give one dose of lovenox today and hold is for possible procedure tomorrow. Case discussed with attending, Dr. Vivas <Fantasma Vivas - Last Filed: 04/15/17 17:19> Objective - Vital Signs/Intake and Output Vital Signs (last 24 hours): Temp Pulse Resp BP Pulse Ox 98 F 65 20 135/89 95 04/15/17 08:17 04/15/17 08:17 04/15/17 08:17 04/15/17 11:03 04/15/17 08:17 Intake and Output: 04/15/17 04/15/17 06:59 18:59 Intake Total 640 360 Output Total 200 650 Balance 440 -290 - Medications Medications: Current Medications Acetaminophen (Tylenol 325mg Tab) 650 mg PO Q6 PRN PRN Reason: Fever >100.4 F Last Admin: 04/14/17 14:11 Dose: 650 mg Aspirin (Ecotrin) 81 mg PO DAILY [facility] [place] Last Admin: 04/15/17 11:03 Dose: 81 mg Clotrimazole (Lotrimin Af 1%) 0 ml TOP BID CARIN Last Admin: 04/15/17 17:04 Dose: 1 applic Piperacillin Sod/Tazobactam Sod (Zosyn 3.375 In Ns 100ml) 100 mls @ 200 mls/hr IVPB Q6 CARIN PRN Reason: Protocol Stop: 04/21/17 18:01 Last Admin: 04/15/17 14:20 Dose: 200 mls/hr Vancomycin HCl 1.25 gm/ Sodium (Chloride) 250 mls @ 167 mls/hr IVPB Q12 CARIN PRN Reason: Protocol Last Admin: 04/15/17 10:49 Dose: 167 mls/hr Insulin Human NPH (Humulin N) 15 units SC BID CARIN Insulin Human Regular (Humulin R Med) 0 units SC ACHS CARIN PRN Reason: Protocol Last Admin: 04/15/17 17:04 Dose: 8 units Lisinopril (Zestril) 5 mg PO DAILY [facility] [place] Last Admin: 04/15/17 11:03 Dose: 5 mg Pantoprazole Sodium (Protonix Ec Tab) 40 mg PO DAILY [facility] [place] Last Admin: 04/15/17 11:03 Dose: 40 mg - Labs Labs: 04/15/17 06:30 04/15/17 06:30 PT 11.2 Seconds (9.9-11.8) 04/15/17 06:30 INR 1.04 (0.93-1.08) 04/15/17 06:30 APTT 28.8 Seconds (23.7-30.8) 04/15/17 06:30 Attending/Attestation - Attestation I have personally seen and examined this patient.: Yes I have fully participated in the care of the patient.: Yes I have reviewed all pertinent clinical information, including history, physical exam and plan: Yes Notes (Text): 04/15/17 17:18 Attending note; Patient seen and examined with resident. Patient is a 66 year old male with past medical history of IDDM, diabetic neuropathy, toe amputation and PVD is sent from shipping agent's office for nonhealing ulcer in the right foot. Patient failed outpatient oral antibiotics therapy. Wound culture sent. on IV vancomycin and Zosyn. ID evaluation appreciated. Diabetes; continue NPH and insulin sliding scale. Insulin dosage increased. Podiatry evaluation with Dr. Chinchilla appreciated. Foot x-rays negative for osteomyelitis. MRI ordered. plan for debridement in a.m.. Nothing by mouth past midnight. Upon discharge the patient will follow-up with PMD DR. Carr.
[2017-04-15] MEDS ORDERED: Insulin Human NPH 1 UNITS/0.01 ML SC SCH ×2 (10:00→18:00)
[2017-04-15] MEDS ORDERED: Vancomycin 500 mg Inj IVPB SCH (10:00)
[2017-04-15] MEDS ORDERED: Enoxaparin 30 mg Syringe SC SCH (10:00)
[2017-04-15] MEDS: Pantoprazole 40 mg EC Tab PO SCH (11:03)
[2017-04-15] MEDS: Clotrimazole 1% Top Soln(10 ml) TOP SCH ×2 (13:47→17:04)
--- NOTE | 2017-04-15 14:08 | CP.PCM.CON ---
History of Present Illness - History of Present Illness History of Present Illness: 66 year old male with PMH of DM with diabetic neuropathy, S/P hernia repair, S/ P left toe amputation was sent in by Dr. Braun after there was note of discharge and foul smell coming from his right foot ulcer on the lateral side of the foot. He has had the ulcer since a month ago and has been following up at the wound center and was given unrecalled antibiotics about 2 weeks ago which somewhat improved the ulcer. It has however worsened in the past week. The patient denies fever or chills, denies swimming or wading in water, has no animal contacts and no pets at home, has not traveled outdoors and has no walked barefoot on soil. He also denies headache or dizziness, no chest pain, no SOB, no nausea or vomiting, no abdominal pain, no diarrhea, no dysuria, no blurring of vision, no cough or rhinorrhea, no sore throat. Infectious Diseases consult is requested to further evaluate and manage. Review of Systems - Review of Systems All systems: reviewed and no additional remarkable complaints except (per HPI) Past Patient History - Infectious Disease Hx of Infectious Diseases: None - Tetanus Immunizations Tetanus Immunization: Unknown - Past Medical History & Family History Past Medical History?: Yes - Past Social History Smoking Status: Former Smoker - CARDIAC Hx Cardiac Disorders: Yes Hx Peripheral Edema: Yes - PULMONARY Hx Respiratory Disorders: Yes Hx Pneumonia: Yes - NEUROLOGICAL Hx Neurological Disorder: Yes Other/Comment: Neuropathy,lumbar radiculopathy,pinched nerve lower back - HEENT Hx HEENT Problems: No - RENAL Hx Chronic Kidney Disease: No - ENDOCRINE/METABOLIC Hx Endocrine Disorders: Yes Hx Diabetes Mellitus Type 2: Yes - HEMATOLOGICAL/ONCOLOGICAL Hx Blood Disorders: No - INTEGUMENTARY Hx Dermatological Problems: Yes Other/Comment: 04-14-17 BILATERAL LEG EDEMA .MORE TO RIGHT LEG.RIGHT FOOT HAS CELLULITIS WITH OPEN WOUND. 2 X 2.5 CM. FOUL SMELLING, COPIOUS SEROUSANGUINEOUS DRAINAGE. ERYTHEMA.REDNESS EXTENDS TO TOP OF FOOT WITH A SMALL BLISTER. AND TO BALL OF FOOT TO MID TOE. LEFT FOOT HAS EDEMA +1. HEALING WOUND TO BALL OF FOOT MEASURES 0.5 CM. - MUSCULOSKELETAL/RHEUMATOLOGICAL Hx Musculoskeletal Disorders: Yes Hx Falls: Yes Hx Osteomyelitis: Yes Hx Unsteady Gait: Yes Other/Comment: RIGHT AND LEFT FOOT CELLULITIS.LUMBAR RADICULOPATHY, - GASTROINTESTINAL Hx Gastrointestinal Disorders: Yes (HERNIORHAPPHY WITH REPAIRS X 2) - GENITOURINARY/GYNECOLOGICAL Hx Genitourinary Disorders: No - PSYCHIATRIC Hx Psychophysiologic Disorder: No Hx Anxiety: No Hx Bipolar Disorder: No Hx Depression: No Hx Emotional Abuse: No Hx Hallucinations: No Hx Panic Symptoms: No Hx Post Traumatic Stress Disorder: No Hx Psychosis: No Hx Physical Abuse: No Hx Schizophrenia: No Hx Sexual Abuse: No Hx Substance Use: No - SURGICAL HISTORY Hx Surgeries: Yes (2 HERNIA REAPIRS) Hx Amputation: Yes (partial Left great toe) Other/Comment: from previous triage: PICC line 03/15 - ANESTHESIA Hx Anesthesia: Yes Hx Anesthesia Reactions: No Hx Malignant Hyperthermia: No Meds Allergies/Adverse Reactions: Allergies Allergy/AdvReac Type Severity Reaction Status Date / Time No Known Allergies Allergy Verified 04/14/17 15:26 - Medications Medications: Current Medications Acetaminophen (Tylenol 325mg Tab) 650 mg PO Q6 PRN PRN Reason: Fever >100.4 F Last Admin: 04/14/17 14:11 Dose: 650 mg Aspirin (Ecotrin) 81 mg PO DAILY [facility] Piperacillin Sod/Tazobactam Sod (Zosyn 3.375 In Ns 100ml) 100 mls @ 200 mls/hr IVPB Q6 CARIN PRN Reason: Protocol Stop: 04/21/17 18:01 Last Admin: 04/14/17 18:00 Dose: 200 mls/hr Vancomycin HCl 1.25 gm/ Sodium (Chloride) 250 mls @ 167 mls/hr IVPB Q12 CARIN PRN Reason: Protocol Insulin Human NPH (Humulin N) 10 units SC DAILY [facility] Insulin Human Regular (Humulin R Med) 0 units SC ACHS CARIN PRN Reason: Protocol Last Admin: 04/14/17 17:21 Dose: 3 units Lisinopril (Zestril) 5 mg PO DAILY [facility] Last Admin: 04/14/17 14:44 Dose: 5 mg Pantoprazole Sodium (Protonix Ec Tab) 40 mg PO DAILY [facility] Physical Exam - Constitutional Appears: Non-toxic, No Acute Distress - Head Exam Head Exam: NORMAL INSPECTION - ENT Exam ENT Exam: Mucous Membranes Moist - Neck Exam Neck exam: Negative for: Lymphadenopathy, Meningismus - Respiratory Exam Respiratory Exam: Decreased Breath Sounds - Cardiovascular Exam Cardiovascular Exam: +S1, +S2 - GI/Abdominal Exam GI & Abdominal Exam: Soft. absent: Tenderness - Extremities Exam Additional comments: right foot on the lateral side on the forefoot area with circular ulcer with some purulent discharge noted Results - Vital Signs Recent Vital Signs: Last Vital Signs Temp 98.3 F 04/14/17 16:07 Pulse 98 H 04/14/17 16:07 Resp 18 04/14/17 16:07 BP 153/85 H 04/14/17 16:07 Pulse Ox 98 04/14/17 13:45 - Labs Result Diagrams: 04/15/17 06:30 04/15/17 06:30 Assessment & Plan - Assessment and Plan (Free Text) Plan: Assessment Infected right foot ulcer in a diabetic patient, R/O osteomyelitis DM with diabetic neuropathy S/P hernia repair S/P left toe amputation Plan Started patient on Vancomycin and Zosyn especially with the recent exposure to antibiotics, pending blood and wound cx; awaiting Podiatry recommendations and plans reviewed xray of the foot which did not show osteomyelitis - will await Podiatry plans prior to ordering MRI of the foot Will follow clinically
--- NOTE | 2017-04-15 16:27 | CON ---
DATE: 04/15/2017 HISTORY OF PRESENT ILLNESS: A 66-year-old male seen at bedside for consultation, evaluation, and man agement of diabetic right foot ulceration. The patient states that he has had the ulcer for approxim ately 1 month, and Dr. Braun, his commercial loan specialist, sent him to the Emergency Department for admittance f or IV antibiotics. The patient is scheduled for surgical procedure Friday, 03/17, 7:30 a.m. PAST MEDICAL HISTORY: Significant for longstanding type 2 diabetes with peripheral vascular disease and peripheral neuropathy, type 1 diabetes, with peripheral vascular disease and peripheral neuropath y. PAST SURGICAL HISTORY: Significant for left hallux amputation, as well as 2 hernia repairs. SOCIAL HISTORY: The patient was a former heavy smoker, quit approximately 4 years ago. Was a former alcohol abuser, quit over 10 years ago, but denies any illicit drug use. ALLERGIES: He has no known drug allergies. FAMILY HISTORY: Father at 85 of unknown health issues and his mother of liver cancer. CURRENT MEDICATIONS: All medications are noted in MAR. OBJECTIVE: Vital signs reveal a temperature of 98, pulse rate of 65, blood pressure of 135/89, respi ratory rate of 20. LABORATORY DATA: Reveal a white count 4.9, hemoglobin of 10.6, hematocrit of 31.9, platelet count of 302, and her ESR is elevated at 40. Microbiology report from the right foot ulcer reveals gram-posi tive cocci preliminarily. X-ray report reveals no acute cortical destruction to suggest osteomyeliti s. OBJECTIVE: Weakly palpable pedal pulses noted bilaterally. Absent pedal hair growth noted bilateral ly. The patient is unable to detect 5.07 g monofilament wire testing bilaterally. There is noted to be a distal Symes amputation at the left hallux. There is noted to be +2 nonpitting lower extremity edema bilaterally. There is a full-thickness ulceration at the lateral aspect of the right 5th meta tarsophalangeal joint. Base of the ulcer is primarily gangrenous. There is noted to be malodor. Th ere is noted to be minimal drainage. There is no purulence; however, the area is flocculent, indicat ing possible abscess formation. The area is cellulitic with no signs of ascending cellulitis. ASSESSMENT: Diez grade II diabetic ulceration, right foot, possible abscess formation. PLAN: X-rays were reviewed. Culture results were reviewed. Foot was cleansed with normal sterile s kevin and a dry sterile dressing was applied. Will keep patient n.p.o. tonight after midnight and he is scheduled to go into the operating room at 7:[address] Braun. The patient will be seen and followed daily. Ciro Chinchilla DPM cc: [id number] TT: 04/15/2017 16:26:41 Confirmation # [id number] Dictation # [id number] mike
[2017-04-15] MEDS: Insulin Human NPH 1 UNITS/0.01 ML SC SCH (18:36)
[2017-04-16] MEDS: Piperacillin/Tazobact 3.375 gm 100 ML IVPB SCH ×4 (02:21→19:30)
[2017-04-16 06:31] LABS: ADD MANUAL DIFF? NO
[2017-04-16 06:50] LABS: INR 1.08 (0.93-1.08); PARTIAL THROMBOPLASTIN TIME 27.2 Seconds (23.7-30.8)
[2017-04-16 06:55] LABS: ALB/GLOB RATIO 1.1 (1.1-1.8); ALKALINE PHOSPHATASE 75 U/L (38-133); ALT/SGPT 29 U/L (7-56); AST/SGOT 22 U/L (15-59); BASO # 0.03 K/mm3 (0.0-2.0); BASO % 0.7 % (0.0-3.0); BILIRUBIN,TOTAL 1.7 mg/dL (0.2-1.3); BLOOD UREA NITROGEN 23 mg/dL (7-21); CALCIUM 8.6 mg/dL (8.4-10.5); CARBON DIOXIDE 25 mmol/L (21-33); CHLORIDE 98 mmol/L (98-107); EOS # 0.3 (0.0-0.7); EOS % 6.7 % (1.5-5.0); GFR AFRICAN-AMERICAN > 60; GRAN # 2.73 (1.4-6.5); GRAN % 61.1 % (50.0-68.0); HEMATOCRIT 31.7 % (42.0-52.0); LYMPH # 0.8 (1.2-3.4); LYMPH % 18.1 % (22.0-35.0); MEAN CORPUSCULAR HEMOGLOBIN 30.3 pg (25.0-35.0); MEAN CORPUSCULAR HGB CONC 34.1 g/dl (31.0-37.0); MONO # 0.6 (0.1-0.6); MONO % 13.4 % (1.0-6.0); PLATELET COUNT 293 10^3/uL (120.0-450.0); POTASSIUM 4.8 mmol/L (3.6-5.0); RED CELL DISTRIBUTION WIDTH 13.6 % (11.5-14.5); SODIUM 134 mmol/L (132-148); TOTAL PROTEIN 6.7 g/dL (5.8-8.3); WHITE BLOOD COUNT 4.5 10^3/ul (4.5-11.0)
[2017-04-16 07:05] LABS: GLUCOSE,RANDOM 353 mg/dL (70-110)
[2017-04-16] MEDS: Insulin Reg-MEDIUM-Coverage SC SCH ×4 (09:55→21:36)
[2017-04-16] MEDS: Insulin Human NPH 1 UNITS/0.01 ML SC SCH ×2 (09:55→17:38)
--- NOTE | 2017-04-16 09:58 | CP.PCM.PN ---
<Genevieve Louie - Last Filed: 04/16/17 10:28> Subjective - Date & Time of Evaluation Date of Evaluation: 04/16/17 Time of Evaluation: 09:30 - Subjective Subjective: 66 yo diabetic male patient seen at bedside this AM w/ attending Dr. Braun present regarding right foot ulceration. Pt denies f/bn/v/c/sob/cp denies any acute overnight events. Denies any pain or discomfort to the foot. Denies any other pedal complaints at this time. Objective - Vital Signs/Intake and Output Vital Signs (last 24 hours): Temp Pulse Resp BP Pulse Ox 98.1 F 76 20 101/63 97 04/16/17 08:00 04/16/17 08:00 04/16/17 08:00 04/16/17 08:00 04/16/17 08:00 Intake and Output: 04/16/17 04/16/17 06:59 18:59 Intake Total 660 Output Total 1500 Balance -840 - Medications Medications: Current Medications Acetaminophen (Tylenol 325mg Tab) 650 mg PO Q6 PRN PRN Reason: Fever >100.4 F Last Admin: 04/14/17 14:11 Dose: 650 mg Aspirin (Ecotrin) 81 mg PO DAILY [facility] Last Admin: 04/15/17 11:03 Dose: 81 mg Clotrimazole (Lotrimin Af 1%) 0 ml TOP BID [facility] Last Admin: 04/15/17 17:04 Dose: 1 applic Piperacillin Sod/Tazobactam Sod (Zosyn 3.375 In Ns 100ml) 100 mls @ 200 mls/hr IVPB Q6 [facility] PRN Reason: Protocol Stop: 04/21/17 18:01 Last Admin: 04/16/17 06:04 Dose: 200 mls/hr Vancomycin HCl 1.25 gm/ Sodium (Chloride) 250 mls @ 167 mls/hr IVPB Q12 [facility] PRN Reason: Protocol Last Admin: 04/15/17 22:13 Dose: 167 mls/hr Insulin Human NPH (Humulin N) 15 units SC ACBD [facility] Last Admin: 04/16/17 08:10 Dose: 15 units Insulin Human Regular (Humulin R Med) 0 units SC ACHS [facility] PRN Reason: Protocol Last Admin: 04/16/17 08:08 Dose: 8 units Lisinopril (Zestril) 5 mg PO DAILY [facility] Last Admin: 04/15/17 11:03 Dose: 5 mg Pantoprazole Sodium (Protonix Ec Tab) 40 mg PO DAILY [facility] Last Admin: 04/15/17 11:03 Dose: 40 mg - Labs Labs: 04/16/17 06:20 04/16/17 06:20 PT 11.7 Seconds (9.9-11.8) 04/16/17 06:20 INR 1.08 (0.93-1.08) 04/16/17 06:20 APTT 27.2 Seconds (23.7-30.8) 04/16/17 06:20 - Constitutional Appears: Non-toxic, No Acute Distress - Extremities Exam Extremities Exam: absent: Calf Tenderness Additional comments: RLE focused exam: VASC- DP/PT pulses are weakly palpable, skin temp runs warm to cool, capillary refill < 3 sec to all digits, 2+ pitting edema noted to lateral foot and distal aspect of leg NEURO- gross pedal sensation is diminished DERM- there is full thickness ulceration (matta grade II) noted to plantar- lateral aspect of R 5th MTPJ, at the base of the ulcer there is a semi-solid darkened eschar with fibrotic tissue, ulceration measures approx 1.0x0.5x 0.3 cm there is surround erythema, however there is no fluctuance, no probe to bone , no drainage on compression, there is mild malodor present ORTHO- no tenderness to palpation of ulceration - Neurological Exam Neurological Exam: Alert, Awake, Oriented x3 - Psychiatric Exam Psychiatric exam: Normal Affect, Normal Mood Assessment and Plan - Assessment and Plan (Free Text) Assessment: 66 yo male patient with ulceration of right foot secondary to diabetic neuropathy Plan: -Pt S&E at bedside with Dr. Braun present -Chart, labs, vitals reviewed: afebrile, no leukocytosis -Right foot cleansed with sterile saline, hydrogel applied to wound and dressed with DSD -Small optifoam applied to plantar aspect of left forefoot to protect superficial lesion -OR cancelled for today. Will await results of foot MRI -Discussed with Dr. Jason Balbuena, who is recommending closed toed stockings as the ulceration was caused by open toed stocking rolling up on a neuropathic foot -Podiatry will continue to monitor daily. <Luz Braun - Last Filed: 05/04/17 16:37> Objective - Vital Signs/Intake and Output Vital Signs (last 24 hours): Temp Pulse Resp BP Pulse Ox 98.1 F 91 H 18 130/80 100 04/18/17 16:00 04/18/17 16:00 04/18/17 16:00 04/18/17 16:00 04/18/17 16:00 - Labs Labs: 04/18/17 07:00 04/18/17 07:00 PT 11.4 Seconds (9.9-11.8) 04/17/17 07:00 INR 1.06 (0.93-1.08) 04/17/17 07:00 APTT 25.8 Seconds (23.7-30.8) 04/17/17 07:00
[2017-04-16] MEDS: Clotrimazole 1% Top Soln(10 ml) TOP SCH ×2 (12:10→19:30)
[2017-04-16] MEDS: Pantoprazole 40 mg EC Tab PO SCH (12:11)
--- NOTE | 2017-04-16 14:22 | CP.PCM.PN ---
<Robyn López - Last Filed: 04/16/17 14:17> Subjective - Date & Time of Evaluation Date of Evaluation: 04/16/17 Time of Evaluation: 14:17 - Subjective Subjective: HOSPITALISTS PROGRESS NOTE Pt is seen and examined at bedside. No acute events overnight. Pt is resting comfortably. Denies having any CP, SOB, abd pain, N/V/D/C, LE pain. OR with Dr. Molina is cancelled. Patient has dressing in place over foot. Objective - Vital Signs/Intake and Output Vital Signs (last 24 hours): Temp Pulse Resp BP Pulse Ox 98.1 F 96 H 20 124/67 97 04/16/17 08:00 04/16/17 12:11 04/16/17 08:00 04/16/17 12:11 04/16/17 08:00 Intake and Output: 04/16/17 04/16/17 06:59 18:59 Intake Total 660 Output Total 1500 Balance -840 - Medications Medications: Current Medications Acetaminophen (Tylenol 325mg Tab) 650 mg PO Q6 PRN PRN Reason: Fever >100.4 F Last Admin: 04/14/17 14:11 Dose: 650 mg Aspirin (Ecotrin) 81 mg PO DAILY [facility] Last Admin: 04/15/17 11:03 Dose: 81 mg Clotrimazole (Lotrimin Af 1%) 0 ml TOP BID [facility] Last Admin: 04/16/17 12:10 Dose: 1 applic Piperacillin Sod/Tazobactam Sod (Zosyn 3.375 In Ns 100ml) 100 mls @ 200 mls/hr IVPB Q6 [facility] PRN Reason: Protocol Stop: 04/21/17 18:01 Last Admin: 04/16/17 06:04 Dose: 200 mls/hr Vancomycin HCl 1.25 gm/ Sodium (Chloride) 250 mls @ 167 mls/hr IVPB Q12 [facility] PRN Reason: Protocol Last Admin: 04/16/17 12:10 Dose: 167 mls/hr Insulin Human NPH (Humulin N) 15 units SC ACBD [facility] Last Admin: 04/16/17 09:55 Dose: 15 units Insulin Human Regular (Humulin R Med) 0 units SC ACHS [facility] PRN Reason: Protocol Last Admin: 04/16/17 12:18 Dose: 8 units Lisinopril (Zestril) 5 mg PO DAILY [facility] Last Admin: 04/16/17 12:11 Dose: 5 mg Pantoprazole Sodium (Protonix Ec Tab) 40 mg PO DAILY [facility] Last Admin: 04/16/17 12:11 Dose: 40 mg - Labs Labs: 04/16/17 06:20 04/16/17 06:20 PT 11.7 Seconds (9.9-11.8) 04/16/17 06:20 INR 1.08 (0.93-1.08) 04/16/17 06:20 APTT 27.2 Seconds (23.7-30.8) 04/16/17 06:20 - Constitutional Appears: Non-toxic, No Acute Distress - Head Exam Head Exam: ATRAUMATIC - ENT Exam ENT Exam: Mucous Membranes Moist - Respiratory Exam Respiratory Exam: Clear to Ausculation Bilateral, NORMAL BREATHING PATTERN. absent: Rales, Rhonchi, Wheezes - Cardiovascular Exam Cardiovascular Exam: REGULAR RHYTHM, +S1, +S2. absent: Gallop, Rubs, Murmur - GI/Abdominal Exam GI & Abdominal Exam: Soft, Normal Bowel Sounds. absent: Distended, Firm, Guarding, Rigid, Tenderness - Extremities Exam Extremities Exam: absent: Pedal Edema Additional comments: dressing in place - Neurological Exam Neurological Exam: Alert, Awake, Oriented x3 - Psychiatric Exam Psychiatric exam: Normal Affect, Normal Mood - Skin Skin Exam: Dry, Intact, Normal Color, Warm Assessment and Plan - Assessment and Plan (Free Text) Assessment: 66 year old male with past medical history of IDDM, diabetic neuropathy, PVD is admitted for lateral foot ulcer. Xray of foot shows no evidence of osteomyelitis. Patient has normal WBC count and vitals are within normal limits. Diabetic foot ulcer Awaiting MRI of foot results Consult ID, Dr. Boland Consult multimedia designer, Dr. Colon. Abx: vancomyocin and zosyn. IDDM Accucheck ACHS ISS medium dose Will switch NPH to 15 units BID Lipid panel WNL Hgb A1c 8.1 Will continue home medication: lisinopril and aspirin Prophylaxis - protonix - SCDs. Will give one dose of lovenox today and hold is for possible procedure tomorrow. Case discussed with attending, Dr. Vivas <Fantasma Vivas - Last Filed: 04/16/17 16:05> Objective - Vital Signs/Intake and Output Vital Signs (last 24 hours): Temp Pulse Resp BP Pulse Ox 98.1 F 96 H 20 124/67 97 04/16/17 08:00 04/16/17 12:11 04/16/17 08:00 04/16/17 12:11 04/16/17 08:00 Intake and Output: 04/16/17 04/16/17 06:59 18:59 Intake Total 660 480 Output Total 1500 450 Balance -840 30 - Medications Medications: Current Medications Acetaminophen (Tylenol 325mg Tab) 650 mg PO Q6 PRN PRN Reason: Fever >100.4 F Last Admin: 04/14/17 14:11 Dose: 650 mg Aspirin (Ecotrin) 81 mg PO DAILY [facility] Last Admin: 04/15/17 11:03 Dose: 81 mg Clotrimazole (Lotrimin Af 1%) 0 ml TOP BID [facility] Last Admin: 04/16/17 12:10 Dose: 1 applic Piperacillin Sod/Tazobactam Sod (Zosyn 3.375 In Ns 100ml) 100 mls @ 200 mls/hr IVPB Q6 [facility] PRN Reason: Protocol Stop: 04/21/17 18:01 Last Admin: 04/16/17 14:22 Dose: 200 mls/hr Vancomycin HCl 1.25 gm/ Sodium (Chloride) 250 mls @ 167 mls/hr IVPB Q12 [facility] PRN Reason: Protocol Last Admin: 04/16/17 12:10 Dose: 167 mls/hr Insulin Human NPH (Humulin N) 15 units SC ACBD [facility] Last Admin: 04/16/17 09:55 Dose: 15 units Insulin Human Regular (Humulin R Med) 0 units SC ACHS [facility] PRN Reason: Protocol Last Admin: 04/16/17 12:18 Dose: 8 units Lisinopril (Zestril) 5 mg PO DAILY [facility] Last Admin: 04/16/17 12:11 Dose: 5 mg Pantoprazole Sodium (Protonix Ec Tab) 40 mg PO DAILY [facility] Last Admin: 04/16/17 12:11 Dose: 40 mg - Labs Labs: 04/16/17 06:20 04/16/17 06:20 PT 11.7 Seconds (9.9-11.8) 04/16/17 06:20 INR 1.08 (0.93-1.08) 04/16/17 06:20 APTT 27.2 Seconds (23.7-30.8) 04/16/17 06:20 Attending/Attestation - Attestation I have personally seen and examined this patient.: Yes I have fully participated in the care of the patient.: Yes I have reviewed all pertinent clinical information, including history, physical exam and plan: Yes Notes (Text): 04/16/17 16:03 Attending note; Patient seen and examined with resident. Patient is a 66 year old male with past medical history of IDDM, diabetic neuropathy, toe amputation and PVD is sent from multimedia designer's office for nonhealing ulcer in the right foot. Patient failed outpatient oral antibiotics therapy. Wound culture is positive for MSSA. on IV vancomycin and Zosyn. ID evaluation appreciated. Diabetes; continue NPH and insulin sliding scale. Insulin dosage increased. Podiatry evaluation with Dr. Chinchilla appreciated. Foot x-rays negative for osteomyelitis. MRI done. results pending. we'll follow up with podiatry with results. Upon discharge the patient will follow-up with PMD DR. Carr.
--- NOTE | 2017-04-16 23:45 | CP.PCM.PN ---
Subjective - Date & Time of Evaluation Date of Evaluation: 04/16/17 Time of Evaluation: 09:30 - Subjective Subjective: Comfortable in bed, not in distress, afebrile, less pain in the right foot. Objective - Vital Signs/Intake and Output Vital Signs (last 24 hours): Temp Pulse Resp BP Pulse Ox 98.2 F 85 20 125/70 97 04/16/17 16:00 04/16/17 16:00 04/16/17 16:00 04/16/17 16:00 04/16/17 16:00 Intake and Output: 04/16/17 04/17/17 18:59 06:59 Intake Total 480 240 Output Total 450 400 Balance 30 -160 - Medications Medications: Current Medications Acetaminophen (Tylenol 325mg Tab) 650 mg PO Q6 PRN PRN Reason: Fever >100.4 F Last Admin: 04/14/17 14:11 Dose: 650 mg Aspirin (Ecotrin) 81 mg PO DAILY [facility] Last Admin: 04/15/17 11:03 Dose: 81 mg Clotrimazole (Lotrimin Af 1%) 0 ml TOP BID [facility] Last Admin: 04/16/17 19:30 Dose: 1 applic Piperacillin Sod/Tazobactam Sod (Zosyn 3.375 In Ns 100ml) 100 mls @ 200 mls/hr IVPB Q6 [facility] PRN Reason: Protocol Stop: 04/21/17 18:01 Last Admin: 04/16/17 19:30 Dose: 200 mls/hr Vancomycin HCl 1.25 gm/ Sodium (Chloride) 250 mls @ 167 mls/hr IVPB Q12 [facility] PRN Reason: Protocol Last Admin: 04/16/17 21:35 Dose: 167 mls/hr Insulin Human NPH (Humulin N) 15 units SC ACBD [facility] Last Admin: 04/16/17 17:38 Dose: 15 units Insulin Human Regular (Humulin R Med) 0 units SC ACHS [facility] PRN Reason: Protocol Last Admin: 04/16/17 21:36 Dose: 1 units Lisinopril (Zestril) 5 mg PO DAILY [facility] Last Admin: 04/16/17 12:11 Dose: 5 mg Pantoprazole Sodium (Protonix Ec Tab) 40 mg PO DAILY [facility] Last Admin: 04/16/17 12:11 Dose: 40 mg - Labs Labs: 04/16/17 06:20 04/16/17 06:20 PT 11.7 Seconds (9.9-11.8) 04/16/17 06:20 INR 1.08 (0.93-1.08) 04/16/17 06:20 APTT 27.2 Seconds (23.7-30.8) 04/16/17 06:20 - Constitutional Appears: Non-toxic, No Acute Distress - Head Exam Head Exam: NORMAL INSPECTION - ENT Exam ENT Exam: Mucous Membranes Moist - Neck Exam Neck Exam: absent: Lymphadenopathy, Meningismus - Respiratory Exam Respiratory Exam: Decreased Breath Sounds - Cardiovascular Exam Cardiovascular Exam: +S1, +S2 - GI/Abdominal Exam GI & Abdominal Exam: Soft. absent: Tenderness - Extremities Exam Additional comments: right foot with dry dressings in place Assessment and Plan - Assessment and Plan (Free Text) Plan: Assessment Infected right foot ulcer in a diabetic patient, R/O osteomyelitis DM with diabetic neuropathy S/P hernia repair S/P left toe amputation Plan Started patient on Vancomycin and Zosyn day 2 especially with the recent exposure to antibiotics, pending final blood and wound cx; awaiting MRI of the foot results Will continue to follow clinically
--- NOTE | 2017-04-17 15:05 | MRI ---
PROCEDURE: MRI of the right foot without contrast HISTORY: right 5th mpj ulcer COMPARISON: TECHNIQUE: MRI of the right foot was performed in multiple planes using multiple pulse sequences. FINDINGS: There is marrow edema in the 5th toe and head of the 5th metatarsal consistent with osteomyelitis. There is also adjacent subcutaneous edema. There is a moderate amount of subcutaneous edema over the dorsum of the foot. There is a mild amount of marrow edema in the 3rd proximal phalanx which could also be secondary to osteomyelitis. There is no cortical destruction IMPRESSION: Marrow edema in the 5th toe and head of the 5th metatarsal, findings suspicious for osteomyelitis. Minimal marrow edema in the 3rd proximal phalanx, significance uncertain
--- NOTE | 2017-04-17 17:50 | PN ---
DATE: 04/17/2017 SUBJECTIVE: The patient is comfortable in bed, not in distress, less pain in the right foot area, un derwent MRI yesterday, still awaiting results of the MRI. The patient has not had any fever overnigh t. No nausea, no vomiting, no diarrhea. OBJECTIVE: VITAL SIGNS: The patient is afebrile, temperature is 97.9 degrees Fahrenheit this morning, respirato ry rate 16, blood pressure 130/78, heart rate is 78. HEAD AND NECK: Normocephalic, atraumatic. LUNGS: Decreased breath sounds bilaterally. HEART: S1 and S2 are normal. ABDOMEN: Soft, nontender, nondistended. EXTREMITIES: Examination of the right foot with dry dressings in place. LABORATORY DATA: Unfortunately, we are unable to review the labs for this patient because the comput er systems are down. ASSESSMENT: We have a 66-year-old male with diabetes, coming in with an infected right foot lateral ulcer suspicious for osteomyelitis. PLAN: We are awaiting wound cultures taken as well as the blood culture final results, which are neg ative so far. We are also awaiting the MRI findings to see whether the patient will need prolonged a ntibiotics or not. Currently, we have the patient on vancomycin and Zosyn. We will continue this un til we get final culture results and MRI results. We have discussed this with Dr. Braun. Marlon Boland M.D. cc: [id number] TT: 04/17/2017 17:50:05 Confirmation # [id number] Dictation # [id number] ln
[2017-04-18] MEDS: Piperacillin/Tazobact 3.375 gm 100 ML IVPB SCH ×2 (00:25→05:16)
[2017-04-18] MEDS: Insulin Reg-MEDIUM-Coverage SC SCH ×3 (01:40→11:44)
[2017-04-18 07:22] LABS: HEMATOCRIT 33.5 % (42.0-52.0); MEAN CELL VOLUME 89.3 fL (80.0-105.0); MEAN CORPUSCULAR HEMOGLOBIN 30.4 pg (25.0-35.0); MEAN PLATELET VOLUME 9.6 fl (7.0-11.0); RED CELL DISTRIBUTION WIDTH 13.9 % (11.5-14.5); WHITE BLOOD COUNT 4.5 10^3/ul (4.5-11.0)
[2017-04-18 08:06] LABS: BLOOD UREA NITROGEN 11 mg/dL (7-21); CALCIUM 8.8 mg/dL (8.4-10.5); CARBON DIOXIDE 29 mmol/L (21-33); CHLORIDE 100 mmol/L (98-107); GFR AFRICAN-AMERICAN > 60; GLUCOSE,RANDOM 119 mg/dL (70-110); POTASSIUM 4.3 mmol/L (3.6-5.0); SODIUM 138 mmol/L (132-148)
[2017-04-18] MEDS: Insulin Human NPH 1 UNITS/0.01 ML SC SCH (08:12)
--- NOTE | 2017-04-18 08:17 | PN ---
DATE: 04/17/2017 SUBJECTIVE: This is a 66-year-old diabetic male patient seen at bedside today with Dr. Braun present regarding right diabetic foot infection. The patient is seen resting comfortably in bed at time of visit. Appears to be in no acute distress. Denies any acute overnight events. Denies fever, nausea, vomiting, chills, shortness of breath, or chest pain. Denies any pain or discomfort to the foot at this time. Denies any other pedal complaints today. LOWER EXTREMITY EXAMINATION (RIGHT FOOT): VASCULAR: Pedal pulses are palpable. DP/PT 1/4. Capillary refill time is less than 4 seconds to digits x 5. Skin temperature runs warm to warm from proximal to distal. There is mild nonpitting edema noted to the plantar lateral aspect of the fifth MTPJ area. NEUROLOGICAL: Pedal sensation of the right foot is grossly diminished. DERMATOLOGIC: There is an ulceration noted to the plantar lateral aspect of the fifth MTPJ, which measures approximately 0.5 cm x 0.4 cm x 0.3 cm with 50% fibrotic/necrotic and 50% granulation tissue noted. There is no purulence on compression of the wound. No malodor, no sinus tracking, no fluctuance. Negative probe to bone. No purulent drainage. ORTHOPEDIC: There is no tenderness noted on palpation of the ulceration site to the fifth MTPJ. ASSESSMENT: A 66-year-old diabetic male patient with diabetic foot infection to the right foot secondary to diabetic neuropathy. PLAN: The patient is seen and evaluated at bedside with Dr. Braun present. Chart reviewed. Santyl ordered for subsequent wound care dressing changes, hydrogel and DSD applied to the foot today. Optifoam dressing reapplied to the left foot. Awaiting MRI results of the right foot. It is likely that the patient will require 4-6 weeks of IV antibiotics with a PICC line if MRI is positive for OM. No surgical intervention required at this time. Podiatry will continue to follow while he remains in-house. ADELITA SEWER CLEANER DPM Luz Braun DPM cc: [id number] TT: 04/17/2017 12:36:58 Confirmation # [id number] Dictation # [id number] MTDD
[2017-04-18 09:02] VITALS: RESP 18
--- NOTE | 2017-04-18 09:13 | CP.PCM.PN ---
Subjective - Date & Time of Evaluation Date of Evaluation: 04/18/17 Time of Evaluation: 09:09 - Subjective Subjective: HOSPITALISTS PROGRESS NOTE Pt is seen and examined at bedside. No acute events overnight. Patient denies CP, SOB, abd pain, N/V/D/C, F/C. Patient denies having any LE pain. Objective - Vital Signs/Intake and Output Vital Signs (last 24 hours): Temp Pulse Resp BP Pulse Ox 98.3 F 85 18 131/49 L 97 04/18/17 07:30 04/18/17 07:30 04/18/17 07:30 04/18/17 07:30 04/18/17 07:30 Intake and Output: 04/18/17 04/18/17 06:59 18:59 Intake Total 690 Output Total 850 Balance -160 - Medications Medications: Current Medications Acetaminophen (Tylenol 325mg Tab) 650 mg PO Q6 PRN PRN Reason: Fever >100.4 F Last Admin: 04/14/17 14:11 Dose: 650 mg Aspirin (Ecotrin) 81 mg PO DAILY [facility] Last Admin: 04/15/17 11:03 Dose: 81 mg Clotrimazole (Lotrimin Af 1%) 0 ml TOP BID [facility] Last Admin: 04/16/17 19:30 Dose: 1 applic Piperacillin Sod/Tazobactam Sod (Zosyn 3.375 In Ns 100ml) 100 mls @ 200 mls/hr IVPB Q6 CARIN PRN Reason: Protocol Stop: 04/21/17 18:01 Last Admin: 04/18/17 05:16 Dose: 200 mls/hr Vancomycin HCl 1.25 gm/ Sodium (Chloride) 250 mls @ 167 mls/hr IVPB Q12 CARIN PRN Reason: Protocol Last Admin: 04/17/17 22:06 Dose: 167 mls/hr Insulin Human NPH (Humulin N) 15 units SC ACBD [facility] Last Admin: 04/18/17 08:12 Dose: 15 units Insulin Human Regular (Humulin R Med) 0 units SC ACHS [facility]IN PRN Reason: Protocol Last Admin: 04/18/17 08:13 Dose: 1 units Lisinopril (Zestril) 5 mg PO DAILY [facility] Last Admin: 04/16/17 12:11 Dose: 5 mg Pantoprazole Sodium (Protonix Ec Tab) 40 mg PO DAILY [facility] Last Admin: 04/16/17 12:11 Dose: 40 mg - Labs Labs: 04/18/17 07:00 04/18/17 07:00 PT 11.7 Seconds (9.9-11.8) 04/16/17 06:20 INR 1.08 (0.93-1.08) 04/16/17 06:20 APTT 27.2 Seconds (23.7-30.8) 04/16/17 06:20 - Constitutional Appears: Non-toxic, No Acute Distress - Head Exam Head Exam: ATRAUMATIC - ENT Exam ENT Exam: Mucous Membranes Moist - Respiratory Exam Respiratory Exam: Clear to Ausculation Bilateral, NORMAL BREATHING PATTERN. absent: Rales, Rhonchi, Wheezes - Cardiovascular Exam Cardiovascular Exam: REGULAR RHYTHM, +S1, +S2. absent: Gallop, Rubs, Murmur - GI/Abdominal Exam GI & Abdominal Exam: Soft, Normal Bowel Sounds. absent: Distended, Firm, Guarding, Rigid, Tenderness - Extremities Exam Extremities Exam: absent: Pedal Edema Additional comments: right foot has dressing over foot - Neurological Exam Neurological Exam: Alert, Awake, Oriented x3 - Psychiatric Exam Psychiatric exam: Normal Affect, Normal Mood - Skin Skin Exam: Dry, Intact, Normal Color, Warm Assessment and Plan - Assessment and Plan (Free Text) Assessment: 66 year old male with past medical history of IDDM, diabetic neuropathy, PVD is admitted for lateral foot ulcer. Xray of foot shows no evidence of osteomyelitis. MRI of foot shows marrow edema in 5th toe and head of 5th metatarsal suspicious of osteomyelitis; minimal marrow edema in 3rd proximal phalanax. Diabetic foot ulcer Will consult vascular surgeon, Dr. Balbuena for placement of PICC line. Per podiatry, pt will require 4-6 weeks of IV antibiotics. Consult ID, Dr. Boland Consult flume tender, Dr. Colon. Abx: Ancef Patient will start rocephin 2 gm IV QD upon discharge IDDM Accucheck ACHS ISS medium dose Will switch NPH to 15 units ACBD Lipid panel WNL Hgb A1c 8.1 Will continue home medication: lisinopril and aspirin Prophylaxis - protonix Case discussed with attending, Dr. Vivas
[2017-04-18 09:33] LABS: INR 1.06 (0.93-1.08); PARTIAL THROMBOPLASTIN TIME 25.8 Seconds (23.7-30.8)
[2017-04-18] MEDS: Pantoprazole 40 mg EC Tab PO SCH (09:43)
[2017-04-18] MEDS ORDERED: Lidocaine 2% Inj (20ml) ONE (09:46)
[2017-04-18 10:54] LABS: ALKALINE PHOSPHATASE 68 U/L (38-133); ALT/SGPT 32 U/L (7-56); AST/SGOT 78 U/L (15-59); BILIRUBIN,TOTAL 0.9 mg/dL (0.2-1.3); BLOOD UREA NITROGEN 17 mg/dL (7-21); CALCIUM 8.8 mg/dL (8.4-10.5); CARBON DIOXIDE 31 mmol/L (21-33); CHLORIDE 101 mmol/L (95-110); GFR AFRICAN-AMERICAN > 60; GLUCOSE,RANDOM 119 mg/dL (70-110); POTASSIUM 5.1 mmol/L (3.6-5.0); SODIUM 139 mmol/L (132-148); TOTAL PROTEIN 6.6 g/dL (5.8-8.3)
[2017-04-18] MEDS: ceFAZolin 2 GM in Sodium Chloride 0.9% 100 ML IVPB SCH ×2 (11:20→14:30)
--- NOTE | 2017-04-18 12:25 | CP.PCM.PN ---
<Genevieve Louie - Last Filed: 04/18/17 12:20> Subjective - Date & Time of Evaluation Date of Evaluation: 04/18/17 Time of Evaluation: 11:15 - Subjective Subjective: 66 yo diabetic male patient seen at bedside this morning for f/u of right foot ulceration. Pt seen resting comfortably in bed at time of visit, denies any pain or discomfort to the foot at this time. Denies f/n/v/c/sob/cp. Says he had the procedure for the PICC line placement. Denies any other problems at this time. Objective - Vital Signs/Intake and Output Vital Signs (last 24 hours): Temp Pulse Resp BP Pulse Ox 98.3 F 85 18 131/79 97 04/18/17 07:30 04/18/17 09:43 04/18/17 07:30 04/18/17 09:43 04/18/17 07:30 Intake and Output: 04/18/17 04/18/17 06:59 18:59 Intake Total 690 Output Total 850 Balance -160 - Medications Medications: Current Medications Acetaminophen (Tylenol 325mg Tab) 650 mg PO Q6 PRN PRN Reason: Fever >100.4 F Last Admin: 04/14/17 14:11 Dose: 650 mg Aspirin (Ecotrin) 81 mg PO DAILY [facility] Last Admin: 04/18/17 09:43 Dose: 81 mg Clotrimazole (Lotrimin Af 1%) 0 ml TOP BID [facility] Last Admin: 04/16/17 19:30 Dose: 1 applic Cefazolin Sodium 2 gm/ Sodium (Chloride) 100 mls @ 200 mls/hr IVPB Q8 [facility]IN PRN Reason: Protocol Last Admin: 04/18/17 11:20 Dose: 200 mls/hr Insulin Human NPH (Humulin N) 15 units SC ACBD [facility] Last Admin: 04/18/17 08:12 Dose: 15 units Insulin Human Regular (Humulin R Med) 0 units SC ACHS CARIN PRN Reason: Protocol Last Admin: 04/18/17 11:44 Dose: 7 units Lisinopril (Zestril) 5 mg PO DAILY [facility] Last Admin: 04/18/17 09:43 Dose: 5 mg Pantoprazole Sodium (Protonix Ec Tab) 40 mg PO DAILY [facility] Last Admin: 04/18/17 09:43 Dose: 40 mg - Labs Labs: 05/19/17 07:00 04/18/17 07:00 PT 11.4 Seconds (9.9-11.8) 04/17/17 07:00 INR 1.06 (0.93-1.08) 04/17/17 07:00 APTT 25.8 Seconds (23.7-30.8) 04/17/17 07:00 - Constitutional Appears: Non-toxic, No Acute Distress - Extremities Exam Additional comments: RLE focused exam: VASC- DP/PT pulses are faintly palpable, skin temp runs warm to warm, cap refill < 3 sec to digits x 5, slight non-pitting edema noted distal-lateral forefoot NEURO- pedal sensation is grossly diminished DERM- full thickness ulceration is noted to plantar-lateral aspect of 5th MTPJ, wound probes to soft tissue (neg probe to bone), minimal serous drainage noted on compression of wound (no purulence), no malodor, no tracking, slight surrounding cellulitis noted ORTHO- no tenderness noted to palpation of right 5th mtpj - Neurological Exam Neurological Exam: Alert, Awake, Oriented x3 - Psychiatric Exam Psychiatric exam: Normal Affect, Normal Mood Assessment and Plan - Assessment and Plan (Free Text) Assessment: 66 yo diabetic male patient w/ ulceration and (+) 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 Chinchilla -Chart, labs, vitals reviewed: afebrile, no leukocytosis -Wound cleansed with sterile saline, santyl applied to wound and wound dressed with 4x4 and kerlix -Optifoam dressing reapplied to left plantar foot -Advised patient to wear surgical shoe to right foot at all times for weightbearing -Discussed plan with primary team and case management, awaiting authorization for outpatient PICC line infusions (will require 4-6 weeks IV abx) -Abx per ID -Pt is to f[facility]. <Ciro Chinchilla - Last Filed: 04/18/17 16:42> Objective - Vital Signs/Intake and Output Vital Signs (last 24 hours): Temp Pulse Resp BP Pulse Ox 98.1 F 91 H 18 130/80 100 04/18/17 16:00 04/18/17 16:00 04/18/17 16:00 04/18/17 16:00 04/18/17 16:00 Intake and Output: 04/18/17 04/18/17 06:59 18:59 Intake Total 690 480 Output Total 850 Balance -160 480 - Medications Medications: Current Medications Acetaminophen (Tylenol 325mg Tab) 650 mg PO Q6 PRN PRN Reason: Fever >100.4 F Last Admin: 04/14/17 14:11 Dose: 650 mg Aspirin (Ecotrin) 81 mg PO DAILY [facility] Last Admin: 04/18/17 09:43 Dose: 81 mg Clotrimazole (Lotrimin Af 1%) 0 ml TOP BID [facility] Last Admin: 04/18/17 13:36 Dose: 1 applic Cefazolin Sodium 2 gm/ Sodium (Chloride) 100 mls @ 200 mls/hr IVPB Q8 [facility] PRN Reason: Protocol Last Admin: 04/18/17 14:30 Dose: Not Given Insulin Human NPH (Humulin N) 15 units SC ACBD [facility] Last Admin: 04/18/17 08:12 Dose: 15 units Insulin Human Regular (Humulin R Med) 0 units SC ACHS [facility] PRN Reason: Protocol Last Admin: 04/18/17 11:44 Dose: 7 units Lisinopril (Zestril) 5 mg PO DAILY [facility] Last Admin: 04/18/17 09:43 Dose: 5 mg Pantoprazole Sodium (Protonix Ec Tab) 40 mg PO DAILY [facility] Last Admin: 04/18/17 09:43 Dose: 40 mg - Labs Labs: 04/18/17 07:00 04/18/17 07:00 PT 11.4 Seconds (9.9-11.8) 04/17/17 07:00 INR 1.06 (0.93-1.08) 04/17/17 07:00 APTT 25.8 Seconds (23.7-30.8) 04/17/17 07:00 Attending/Attestation - Attestation I have personally seen and examined this patient.: Yes I have fully participated in the care of the patient.: Yes I have reviewed all pertinent clinical information, including history, physical exam and plan: Yes
[2017-04-18 13:04] LABS: HEMATOCRIT 31.3 % (42.0-52.0); MEAN CELL VOLUME 89.7 fL (80.0-105.0); MEAN CORPUSCULAR HEMOGLOBIN 30.1 pg (25.0-35.0); MEAN CORPUSCULAR HGB CONC 33.5 g/dl (31.0-37.0); RED CELL DISTRIBUTION WIDTH 14.1 % (11.5-14.5); WHITE BLOOD COUNT 4.7 10^3/ul (4.5-11.0)
[2017-04-18] MEDS: Clotrimazole 1% Top Soln(10 ml) TOP SCH (13:36)
--- NOTE | 2017-04-18 14:35 | VASCULAR ---
PROCEDURE: Ultrasound and fluoroscopically placed left upper extremity PICC line. HISTORY: Osteomyelitis. Long-term IV antibiotics. Needs PICC low PHYSICIAN(S): Christiano Balbuena MD. TECHNIQUE: The relative risks and indications of the procedure were explained to the patient and consent obtained. The patient was placed supine on the arteriogram table and the left arm prepped and draped in the usual sterile fashion. A tourniquet was applied to the left axilla. 1% Xylocaine was used to anesthetize the skin and soft tissues at the puncture site above the elbow. The left basilic vein was punctured under direct ultrasound guidance with a micropuncture set. A 0.018 guidewire was advanced centrally and used to measure the length to the SVC/RA junction. A 5 Swazi single-lumen PICC line 47 cm long was advanced to the SVC/RA junction. The catheter was flushed and secured. The patient tolerated the procedure well. IMPRESSION: 1. Ultrasound and fluoroscopically placed left upper extremity PICC line. A 5 Swazi single-lumen PICC line 47 cm long was advanced to the SVC/RA junction.
--- NOTE | 2017-04-18 16:15 | CP.PCM.DIS ---
<Robyn López - Last Filed: 04/18/17 16:12> Provider - Provider Date of Admission: 04/14/17 12:49 Attending physician: Fantasma Vivas MD Primary care physician: Sweetie Carr MD Consults: Podiatry: Dr. Regan ID: Dr. Boland Vascular Surgeon: Dr. Balbuena Time Spent in preparation of Discharge (in minutes): 45 Diagnosis - Discharge Diagnosis (1) Diabetic foot ulcer Status: Acute (2) Diabetes mellitus Status: Chronic Priority: Medium Hospital Course - Lab Results Lab Results: Most Recent Lab Values WBC 4.5 10^3/ul (4.5-11.0) 04/18/17 07:00 RBC 3.75 10^6/uL (3.5-6.1) 04/18/17 07:00 Hgb 11.4 gm/dL (14.0-18.0) L 04/18/17 07:00 Hct 33.5 % (42.0-52.0) L 04/18/17 07:00 MCV 89.3 fL (80.0-105.0) 04/18/17 07:00 MCH 30.4 pg (25.0-35.0) 04/18/17 07:00 MCHC 34.0 g/dl (31.0-37.0) 04/18/17 07:00 RDW 13.9 % (11.5-14.5) 04/18/17 07:00 Plt Count 315 10^3/uL (120.0-450.0) 04/18/17 07:00 MPV 9.6 fl (7.0-11.0) 04/18/17 07:00 Gran % 61.1 % (50.0-68.0) 04/16/17 06:20 Lymph % (Auto) 18.1 % (22.0-35.0) L 04/16/17 06:20 [place] % (Auto) 13.4 % (1.0-6.0) H 04/16/17 06:20 Eos % (Auto) 6.7 % (1.5-5.0) H 04/16/17 06:20 Baso % (Auto) 0.7 % (0.0-3.0) 04/16/17 06:20 Gran # 2.73 (1.4-6.5) 04/16/17 06:20 Lymph # 0.8 (1.2-3.4) L 04/16/17 06:20 [place] # 0.6 (0.1-0.6) 04/16/17 06:20 Eos # 0.3 (0.0-0.7) 04/16/17 06:20 Baso # 0.03 K/mm3 (0.0-2.0) 04/16/17 06:20 ESR 40 mm/hr (0.00-15.0) H 04/15/17 06:30 PT 11.4 Seconds (9.9-11.8) 04/17/17 07:00 INR 1.06 (0.93-1.08) 04/17/17 07:00 APTT 25.8 Seconds (23.7-30.8) 04/17/17 07:00 Sodium 138 mmol/L (132-148) 04/18/17 07:00 Potassium 4.3 mmol/L (3.6-5.0) 04/18/17 07:00 Chloride 100 mmol/L (98-107) 04/18/17 07:00 Carbon Dioxide 29 mmol/L (21-33) 04/18/17 07:00 Anion Gap 13 (10-20) 04/18/17 07:00 BUN 11 mg/dL (7-21) 04/18/17 07:00 Creatinine 0.7 mg/dL (0.5-1.4) 04/18/17 07:00 Est GFR ( Amer) > 60 04/18/17 07:00 Est GFR (Non-Af Amer) > 60 04/18/17 07:00 POC Glucose (mg/dL) 349 mg/dL (65-110) H 04/15/17 09:01 Random Glucose 119 mg/dL (70-110) H 04/18/17 07:00 Hemoglobin A1c 8.1 % (4.2-6.5) H D 04/15/17 06:30 Calcium 8.8 mg/dL (8.4-10.5) 04/18/17 07:00 Total Bilirubin 0.9 mg/dL (0.2-1.3) 04/17/17 07:00 AST 78 U/L (15-59) H 04/17/17 07:00 ALT 32 U/L (7-56) 04/17/17 07:00 Alkaline Phosphatase 68 U/L (38-133) 04/17/17 07:00 Lactate Dehydrogenase 425 U/L (333-699) 04/14/17 11:45 Total Creatine Kinase 109 U/L (35-230) 04/14/17 11:45 Troponin I < 0.01 ng/mL 04/14/17 11:45 C-React Prot High Sens 4.72 mg/L (1.00-3.00) H 04/15/17 06:30 Total Protein 6.6 g/dL (5.8-8.3) 04/17/17 07:00 Albumin 3.3 g/dL (3.0-4.8) 04/17/17 07:00 Globulin 3.3 gm/dL 04/17/17 07:00 Albumin/Globulin Ratio 1.0 (1.1-1.8) L 04/17/17 07:00 Triglycerides 72 mg/dL (35-160) 04/15/17 06:30 Cholesterol 147 mg/dL (130-200) 04/15/17 06:30 LDL Cholesterol Direct 79 mg/dL (0-129) 04/15/17 06:30 HDL Cholesterol 51 mg/dL (29-60) 04/15/17 06:30 - Hospital Course Hospital Course: 66 year old male with past medical history of IDDM, diabetic neuropathy, PVD is admitted for lateral foot ulcer. X ray on admission showed no evidence of osteomyelitis. Patient was started on IV antibiotics and consults for ID and podiatry were done. MRI done later in the hospital stay showed marrow edema in 5th toe and head of metatarsal suspicious of osteomyelitis. At this time, podiatry recommended IV antibiotics for 4-6 weeks and no surgical intervention. Patient received a PICC line which was placed by vascular surgeon. Patient will receive 6 weeks of IV rocephin 2 gm daily. Patient is to follow up with PMD upon discharge. Patient is to follow up with design agent, Dr. Braun upon discharge. Patient is to receive IV Rocephin 2 gm qd for 6 weeks upon discharge at the infusion center. Patient is to have weekly labs including CBC, CMP, ESR, CRP. Patient is to continue taking his home medications as prescribed. Please see MAR for full details. - Date & Time of H&P Date of H&P: 04/18/17 Time of H&P: 16:13 Discharge Exam - Head Exam Head Exam: NORMAL INSPECTION - Eye Exam Eye Exam: EOMI - ENT Exam ENT Exam: Mucous Membranes Moist - Respiratory Exam Respiratory Exam: Clear to PA & Lateral, NORMAL BREATHING PATTERN. absent: Rales, Rhonchi, Wheezes - Cardiovascular Exam Cardiovascular Exam: REGULAR RHYTHM, +S1, +S2. absent: Diastolic murmur, Gallop , Rubs, Systolic Murmur - GI/Abdominal Exam GI & Abdominal Exam: Normal Bowel Sounds, Soft. absent: Distended, Firm, Guarding, Rigid, Tenderness - Extremities Exam Additional comments: no edema or tenderness. R lateral foot ulcer - Neurological Exam Neurological exam: Alert, Oriented x3 - Psychiatric Exam Psychiatric exam: Normal Affect, Normal Mood - Skin Skin Exam: Dry, Intact, Normal Color, Warm Discharge Plan - Discharge Medications Prescriptions: cefTRIAXone [Rocephin] 2 gm IV DAILY #1 vial - Follow Up Plan Condition: GOOD Disposition: HOME/ ROUTINE Instructions: Diabetic Foot Care (DC), Diabetic Foot Ulcers (DC) Additional Instructions: Patient is to follow up with PMD upon discharge. Patient is to follow up with design agent, Dr. Braun upon discharge. Patient is to receive IV Rocephin 2 gm qd for 6 weeks upon discharge at the infusion center. Patient is to have weekly labs including CBC, CMP, ESR, CRP. Patient is to continue taking his home medications as prescribed. Patient aware transfusion starts tomorrow Referrals: Luz Braun DPM [Staff Provider] - Sweetie Carr MD [Primary Care Provider] - <Fantasma Vivas - Last Filed: 04/18/17 17:03> Provider - Provider Date of Admission: 04/14/17 12:49 Attending physician: Fantasma Vivas MD Primary care physician: Sweetie Carr MD Hospital Course - Lab Results Lab Results: Most Recent Lab Values WBC 4.5 10^3/ul (4.5-11.0) 04/18/17 07:00 RBC 3.75 10^6/uL (3.5-6.1) 04/18/17 07:00 Hgb 11.4 gm/dL (14.0-18.0) L 04/18/17 07:00 Hct 33.5 % (42.0-52.0) L 04/18/17 07:00 MCV 89.3 fL (80.0-105.0) 04/18/17 07:00 MCH 30.4 pg (25.0-35.0) 04/18/17 07:00 MCHC 34.0 g/dl (31.0-37.0) 04/18/17 07:00 RDW 13.9 % (11.5-14.5) 04/18/17 07:00 Plt Count 315 10^3/uL (120.0-450.0) 04/18/17 07:00 MPV 9.6 fl (7.0-11.0) 04/18/17 07:00 Gran % 61.1 % (50.0-68.0) 04/16/17 06:20 Lymph % (Auto) 18.1 % (22.0-35.0) L 04/16/17 06:20 [place] % (Auto) 13.4 % (1.0-6.0) H 04/16/17 06:20 Eos % (Auto) 6.7 % (1.5-5.0) H 04/16/17 06:20 Baso % (Auto) 0.7 % (0.0-3.0) 04/16/17 06:20 Gran # 2.73 (1.4-6.5) 04/16/17 06:20 Lymph # 0.8 (1.2-3.4) L 04/16/17 06:20 [place] # 0.6 (0.1-0.6) 04/16/17 06:20 Eos # 0.3 (0.0-0.7) 04/16/17 06:20 Baso # 0.03 K/mm3 (0.0-2.0) 04/16/17 06:20 ESR 40 mm/hr (0.00-15.0) H 04/15/17 06:30 PT 11.4 Seconds (9.9-11.8) 04/17/17 07:00 INR 1.06 (0.93-1.08) 04/17/17 07:00 APTT 25.8 Seconds (23.7-30.8) 04/17/17 07:00 Sodium 138 mmol/L (132-148) 04/18/17 07:00 Potassium 4.3 mmol/L (3.6-5.0) 04/18/17 07:00 Chloride 100 mmol/L (98-107) 04/18/17 07:00 Carbon Dioxide 29 mmol/L (21-33) 04/18/17 07:00 Anion Gap 13 (10-20) 04/18/17 07:00 BUN 11 mg/dL (7-21) 04/18/17 07:00 Creatinine 0.7 mg/dL (0.5-1.4) 04/18/17 07:00 Est GFR ( Amer) > 60 04/18/17 07:00 Est GFR (Non-Af Amer) > 60 04/18/17 07:00 POC Glucose (mg/dL) 349 mg/dL (65-110) H 04/15/17 09:01 Random Glucose 119 mg/dL (70-110) H 04/18/17 07:00 Hemoglobin A1c 8.1 % (4.2-6.5) H D 04/15/17 06:30 Calcium 8.8 mg/dL (8.4-10.5) 04/18/17 07:00 Total Bilirubin 0.9 mg/dL (0.2-1.3) 04/17/17 07:00 AST 78 U/L (15-59) H 04/17/17 07:00 ALT 32 U/L (7-56) 04/17/17 07:00 Alkaline Phosphatase 68 U/L (38-133) 04/17/17 07:00 Lactate Dehydrogenase 425 U/L (333-699) 04/14/17 11:45 Total Creatine Kinase 109 U/L (35-230) 04/14/17 11:45 Troponin I < 0.01 ng/mL 04/14/17 11:45 C-React Prot High Sens 4.72 mg/L (1.00-3.00) H 04/15/17 06:30 Total Protein 6.6 g/dL (5.8-8.3) 04/17/17 07:00 Albumin 3.3 g/dL (3.0-4.8) 04/17/17 07:00 Globulin 3.3 gm/dL 04/17/17 07:00 Albumin/Globulin Ratio 1.0 (1.1-1.8) L 04/17/17 07:00 Triglycerides 72 mg/dL (35-160) 04/15/17 06:30 Cholesterol 147 mg/dL (130-200) 04/15/17 06:30 LDL Cholesterol Direct 79 mg/dL (0-129) 04/15/17 06:30 HDL Cholesterol 51 mg/dL (29-60) 04/15/17 06:30 Attending/Attestation - Attestation I have personally seen and examined this patient.: Yes I have fully participated in the care of the patient.: Yes I have reviewed all pertinent clinical information, including history, physical exam and plan: Yes Notes (Text): 04/18/17 17:01 Attending note; Patient seen and examined with resident. Patient is a 66 year old male with past medical history of IDDM, diabetic neuropathy, toe amputation and PVD is sent from design agent's office for nonhealing ulcer in the right foot. Patient failed outpatient oral antibiotics therapy. Wound culture is positive for MSSA. Treated with IV vancomycin and Zosyn. ID evaluation appreciated. Diabetes; continue NPH and insulin sliding scale. Insulin dosage increased. Podiatry evaluation with Dr. Chinchilla appreciated. Foot x-rays negative for osteomyelitis. MRI is positive for osteomyelitis. Status post PICC line placement by Dr. Christiano Balbuena. Patient will be discharged home with IV Rocephin daily for 6 weeks. [place] [facility] [place] Weekly labs ordered. Patient will follow-up with Dr. Braun on Friday. Possible outpatient hyperbaric treatment arrangement will be done by podiatry Upon discharge the patient will follow-up with PMD DR. Carr. Diagnosis; Right foot osteomyelitis Diabetes Neuropathy
[2017-04-18 16:34] VITALS: BP 130/80; PULSE 91; TEMP 98.1; O2SAT 100
--- NOTE | 2017-04-18 22:05 | CP.PCM.PN ---
Subjective - Date & Time of Evaluation Date of Evaluation: 04/18/17 Time of Evaluation: 10:10 - Subjective Subjective: Comfortable, afebrile, not in distress. Objective - Vital Signs/Intake and Output Vital Signs (last 24 hours): Temp Pulse Resp BP Pulse Ox 98.1 F 91 H 18 130/80 100 04/18/17 16:00 04/18/17 16:00 04/18/17 16:00 04/18/17 16:00 04/18/17 16:00 Intake and Output: 04/18/17 04/19/17 18:59 06:59 Intake Total 480 Balance 480 - Labs Labs: 04/18/17 07:00 04/18/17 07:00 PT 11.4 Seconds (9.9-11.8) 04/17/17 07:00 INR 1.06 (0.93-1.08) 04/17/17 07:00 APTT 25.8 Seconds (23.7-30.8) 04/17/17 07:00 - Constitutional Appears: Non-toxic, No Acute Distress - Head Exam Head Exam: NORMAL INSPECTION - Respiratory Exam Respiratory Exam: Decreased Breath Sounds - Cardiovascular Exam Cardiovascular Exam: +S1, +S2 - GI/Abdominal Exam GI & Abdominal Exam: Soft. absent: Tenderness - Extremities Exam Additional comments: right foot with dressings in place Assessment and Plan - Assessment and Plan (Free Text) Plan: Assessment Infected right foot ulcer in a diabetic patient, with acute osteomyelitis of the 5th metatarsal and metatarsal head, growing MSSA DM with diabetic neuropathy S/P hernia repair S/P left toe amputation Plan changed antibiotics to Cefazolin and will need 4-6 weeks of antibiotics with weekly ESR, CRP, CBC, CMP and outpatient follow up with Dr. Braun; may substitute Rocephin for Cefazolin
== END 2017-04-18 17:13 | disposition home or self-care (01) | DRG 533 ==
LOC: ED 10:50 → ERH 12:49 → 5RNO 14:39
PROVIDERS: ADMIT Internal Medicine; ATTEND Internal Medicine
PROC: 02HV33Z Insertion of Infusion Device into Superior Vena Cava, Percutaneous Approach (ICD-10-PCS; principal; 2017-04-18)
DX: E11.42 Type 2 diabetes mellitus with diabetic polyneuropathy (principal); M86.171 Other acute osteomyelitis, right ankle and foot; E11.621 Type 2 diabetes mellitus with foot ulcer; E11.51 Type 2 diabetes mellitus with diabetic peripheral angiopathy without gangrene; L97.519 Non-pressure chronic ulcer of other part of right foot with unspecified severity; E11.69 Type 2 diabetes mellitus with other specified complication; Z79.4 Long term (current) use of insulin; Z89.412 Acquired absence of left great toe; Z87.891 Personal history of nicotine dependence; Z80.0 Family history of malignant neoplasm of digestive organs